=== PATIENT | female | born 1990 | race Caucasian/White ===

== ENCOUNTER → 2017-06-18 07:45 | Outpatient (CLI) | payer OTHER, SELFPAY ==
[2017-06-18 16:19] LABS: Absolute Neutrophil Count 6.6 X10^3/uL (2.0-7.7); Basophil# 0.03 X10^3/uL; Basophil% 0.2 % (0-1); Eosinophil# 0.18 X10^3/uL; Eosinophils% 1.2 % (0-5); Hematocrit 40.8 % (37-47); Hemoglobin 12.7 g/dl (12.0-15.0); Lymphocyte % 46.7 % (19-41); Mean Corp Hgb Conc 31.1 g/gl (32-36); Mean Corpuscular Hgb 28.8 pg (27.0-32.0); Mean Corpuscular Volume 92.5 fL (81-99); Mean Platelet Vol. 9.7 fl (6.2-12.0); Monocyte# 0.97 X10^3/uL; Monocyte% 6.7 % (0-10); Neutrophil # 6.55 X10^3/uL (2.7-7.7); Platelet Count 509 K/mm3 (150-450); RBC Distribution Width CV 13.4 % (11.6-14.6); RBC Distribution Width SD 45.2 fl (35.1-43.9); Red Blood Count 4.41 M/mm3 (4.2-5.4); White Blood Count 14.6 K/mm3 (4.4-11.0)
[2017-06-18 16:28] LABS: Differential Indicated SCAN CRITERIA MET; POSITIVE COUNT NO; POSITIVE DIFFERENTIAL YES; POSITIVE MORPHOLOGY NO
[2017-06-18 17:35] LABS: Reactive Lymphocyte RARE
== END ==
PROVIDERS: Family Provider Nurse Practitioner; PCP Nurse Practitioner
DX: R10.84 Generalized abdominal pain (principal)
CPT/HCPCS: 36415; 85025

== ENCOUNTER 2017-10-18 12:09 | Inpatient (IN) | payer OTHER, SELFPAY ==
[2017-10-18 12:21] VITALS: BMI 23.3
[2017-10-18 12:26] VITALS: BMI 23.4
[2017-10-18 12:40] VITALS: BP 110/73; PULSE 59; RESP 18; TEMP 36.9; O2SAT 100
--- NOTE | 2017-10-18 13:18 | PCM.HP.STD ---
Problem List (1) Opiate withdrawal Status: Acute (2) Narcotic dependence Status: Chronic (3) Tobacco dependence Status: Chronic (4) Fibromyalgia Status: Chronic (5) Migraine headache Status: Chronic (6) Neuropathy Status: Chronic Comment: Left lower extremity with abnormal nerve conduction studies (7) Anxiety Status: Chronic History of Present Illness Date of Admission: 10/18/17 Chief Complaint: opiate withdrawal with diarrhea, abdominal cramps and sweats The patient is a 27 year old F with a PMH of HTN, fibromyalgia, chronic back pain, neuropathy in the LLE anterior thigh, tobacco dependence and narcotic dependence who presented to the [facility] office requesting inpatient admission for controlled opiate withdrawal. she is addicted to Percocet and takes 60-70 mg of oxycodone daily.....has in the past taken as much as 100 mg of percocet a day. she has been to rehab 1 time in the past and was following up with a counselor but was discharged from the practice after missing an appt because she was ill. She has been going to but has no sponsor and she is not a drinker. She plans on attending an OP program when she is discharged that is near her home. She lives with her BF and he is not an addict. Her parents are very supportive. She had been clean for about 8 months and then began using again to control anxiety. She lost her job because she called in sick frequently when she went into withdrawal because she could not get Percocet. She has been getting Percocet from her GM and aunt and has gotten Percocet from friends in the past. She has never used IV drugs. She smokes 6-7 cigarettes a day and occasional marijuana. She occasionally has a drink but does not drink to excess. She denies any hx of hepatitis. She denies scleral icterus, jaundice, dark urine or pale stool. She was admitted to the hospital and the [facility] protocol for opiate withdrawal was initiated. Past Medical History Past Medical History (Chronic Problems): Chronic Problems Narcotic dependence (Chronic) Tobacco dependence (Chronic) Fibromyalgia (Chronic) Migraine headache (Chronic) Neuropathy (Chronic) Left lower extremity with abnormal nerve conduction studies Anxiety (Chronic) Allergies tramadol Allergy (Verified 10/18/17 12:31) Anaphylaxis duloxetine [From Cymbalta] Adverse Reaction (Verified 10/18/17 12:31) Diarrhea Home Medications: Ambulatory Orders Medication Instructions Recorded Citalopram Hydrobromide 40 mg PO DAILY 10/18/17 [Citalopram HBr] Levonorgestrel-Ethin Estradiol 1 tablet PO DAILY 10/18/17 [Larissia-28 Tablet] Metoprolol Succinate 25 mg PO DAILY 10/18/17 Sumatriptan Succinate 25 mg PO PRN PRN 10/18/17 Topiramate [Topamax] 25 mg PO DAILY 10/18/17 busPIRone [Buspar] 5 mg PO DAILY 10/18/17 Surgical History: noncontributory Psychiatric History: Anxiety [employer]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 Denies: Fever Eyes: Denies: Vision Change HEENT: Denies: Head Aches, Sinus Congestion, Sinus Drainage Cardiovascular: Denies: Chest Pain, Palpitations Respiratory: Denies: Cough, Shortness of breath at rest, Sputum production Gastrointestinal: Reports: Diarrhea, - - Abdominal cramping Genitourinary: Denies: Dysuria Gynecological: Denies: Vaginal discharge Musculoskeletal: Reports: Leg Pain - Left anterior thigh and chronic no change recently Skin: Denies: Rash, Wounds Neurological: Denies: Numbness, Tingling, Focal weakness Psychiatric: Reports: Anxiety. Denies: Homicidal Ideations, Suicidal Ideations Endocrine: Denies: Change in Body Habitus Hematologic/ Lymphatic: Denies: Hx of blood clot VTE Information - Inpt Only VTE Present on Admission: No VTE Mechan Device Prophylaxis: None VTE Pharm Prophylaxis ordered?: No Reason prophylaxis not ordered:: Treatment Not Indicated - Patient is very low risk and is ambulatory Patient Problems: Active and Suspected Problems Opiate withdrawal (Acute) - Physical Exam Vital Signs Temp Pulse Resp BP Pulse Ox 98.4 F 59 L 18 110/73 100 10/18/17 12:40 10/18/17 12:40 10/18/17 12:40 10/18/17 12:40 10/18/17 12:40 Oxygen Delivery Method Room Air Weight: 136 lb 3.931 oz Body Mass Index (BMI) 23.3 Assessment/Plan All Active Problems Opiate withdrawal (Acute) Impression 1. acute opiate withdrawal 2. chronic narcotic dependence 3. Tobacco dependence 4. marijuana use 5. chronic back pain 6. neuropathy LLE 7. fibromyalgia 8. HTN [facility] protocol for opiate withdrawal initiated. No clonidine since she is already on a beta stephanie and the HR is in the 50's and 60's. suboxone taper check a CMP, CBC, urine drug screen She may take her own BCP
[2017-10-18 13:45] LABS: Absolute Lymphocyte Count 3.57 X10^3/ul (0.83-4.51); Absolute Neutrophil Count 6.9 X10^3/uL (2.0-7.7); Basophil# 0.03 X10^3/uL; Basophil% 0.3 % (0-1); Eosinophil# 0.03 X10^3/uL; Eosinophils% 0.3 % (0-5); Hematocrit 37.5 % (37-47); Hemoglobin 12.4 g/dl (12.0-15.0); Lymphocyte # 3.57 X10^3/ul (4.0); Mean Corp Hgb Conc 33.1 g/gl (32-36); Mean Corpuscular Hgb 29.5 pg (27.0-32.0); Mean Corpuscular Volume 89.3 fL (81-99); Mean Platelet Vol. 10.2 fl (6.2-12.0); Monocyte# 0.61 X10^3/uL; Monocyte% 5.5 % (0-10); Neutrophil % 61.7 % (47-70); POSITIVE COUNT NO; POSITIVE DIFFERENTIAL NO; POSITIVE MORPHOLOGY NO; Platelet Count 401 K/mm3 (150-450); RBC Distribution Width CV 12.4 % (11.6-14.6); RBC Distribution Width SD 40.2 fl (35.1-43.9); White Blood Count 11.2 K/mm3 (4.4-11.0)
[2017-10-18 13:50] LABS: International Normalized Ratio 1.1; Prothrombin Time (Protime)PT. 13.7 SECONDS (11.7-14.9)
[2017-10-18 14:01] LABS: AST(SGOT) 9 U/L (15-37); Alanine Aminotransfer ALT/SGPT 20 U/L (13-56); Albumin, Serum 3.7 g/dL (3.2-5.0); Alkaline Phosphatase 72 U/L (45-117); Anion Gap 8 (5-15); BUN 11 mg/dL (7-18); BUN/Creat Ratio 12.3 RATIO (10-20); Calcium,Total 8.8 mg/dL (8.5-10.1); Chloride 106 mmol/L (98-107); EST Glomerular Filtration Rate 81 mL/min (>60); Est Glom Filt Rate - Afr Amer 98 mL/min (>60); Estimated Creatinine Clearance 82.51 ml/min; Globulin 3.8 g/dL (2.2-4.2); Glucose 89 mg/dL (74-106); Potassium 4.3 mmol/L (3.5-5.1); Protein, Total 7.5 g/dL (6.4-8.2); Sodium Level 137 mmol/L (136-145)
[2017-10-18] MEDS: Methocarbamol 750 MG Tablet PO ×2 (14:14→22:21)
[2017-10-18] MEDS: hydrOXYzine PAM 25 MG Capsule 50 MG PO ×2 (14:14→20:11)
[2017-10-18] MEDS: Loperamide 2 MG Capsule PO (14:14)
[2017-10-18] MEDS: Buprenorphine HCl 2 MG TAB.SUBL SL ×2 (14:14→22:24)
[2017-10-18 14:16] VITALS: BP 112/72; PULSE 60; RESP 18; TEMP 36.8
[2017-10-18 14:28] LABS: Amphetamine Urine VISTA NEGATIVE (<1000 ng/mL); Barbiturate Urine VISTA NEGATIVE (< 200 ng/mL); Benzodiazepine Urine VISTA NEGATIVE (< 200 ng/mL); Cocaine Urine VISTA NEGATIVE (< 300 ng/mL); Ecstacy Urine VISTA NEGATIVE (< 500 ng/mL); Methadone Urine VISTA NEGATIVE (< 300 ng/mL); PCP Urine VISTA NEGATIVE (< 25 ng/mL); THC Urine VISTA NEGATIVE (< 50 ng/mL); Vista UDS pH Range 6
--- NOTE | 2017-10-18 15:41 | CASEMGMT ---
Social Work Pt admitted under the [facility]. FAY spoke with pt physician who states pt has been attending AA meetings but would be better served with Narcotics anonymous. SW met with pt in room and provided a list of NA meetings near pt home. Pt is appreciative of list and declines further needs at this time. SW will remain available should further needs arise. EUFEMIA Barboza
[2017-10-18] MEDS: Pramipexole Di-HCl 0.25 MG Tablet PO (15:51)
[2017-10-18] MEDS: QUEtiapine 25 MG Tablet PO (15:51)
[2017-10-18 18:00] VITALS: BP 89/50; PULSE 69; RESP 16; TEMP 36.8
[2017-10-18 18:08] VITALS: BP 89/50; PULSE 69; RESP 18; TEMP 36.8; O2SAT 98
[2017-10-18 19:58] VITALS: BP 97/52; BP 97/59; PULSE 52; RESP 14; TEMP 36.6; O2SAT 99
[2017-10-18] MEDS: Ibuprofen 600 MG Tablet PO (20:11)
[2017-10-18] MEDS: Topiramate 25 MG Tablet PO (22:23)
[2017-10-19 03:01] VITALS: BP 101/57; PULSE 69; RESP 14; TEMP 36.7; O2SAT 97
[2017-10-19] MEDS: QUEtiapine 25 MG Tablet PO ×4 (03:03→22:36)
[2017-10-19] MEDS: Acetaminophen 500 MG Tablet PO ×4 (03:03→20:40)
[2017-10-19] MEDS: Buprenorphine HCl 2 MG TAB.SUBL SL ×3 (06:17→22:35)
[2017-10-19 08:52] VITALS: BP 100/67; PULSE 76; RESP 16; TEMP 36.6; O2SAT 98
[2017-10-19 09:00] VITALS: PULSE 76
[2017-10-19] MEDS: Multivitamins,Ther W-Minerals Tablet 1 TABLET PO (09:00)
[2017-10-19] MEDS: Metoprolol(XL)Succ 25 MG Tablet PO (09:00)
[2017-10-19] MEDS: Citalopram 40 MG TABLET PO (09:00)
[2017-10-19] MEDS: busPIRone 5 MG Tablet PO (09:00)
[2017-10-19] MEDS: Methocarbamol 750 MG Tablet PO ×3 (09:01→22:55)
[2017-10-19] MEDS: hydrOXYzine PAM 25 MG Capsule 50 MG PO ×2 (12:36→20:40)
[2017-10-19] MEDS: Ibuprofen 600 MG Tablet PO (12:36)
[2017-10-19 13:41] VITALS: BP 104/60; PULSE 69; RESP 16; TEMP 36.3; O2SAT 99
--- NOTE | 2017-10-19 18:11 | PCM.PROGNOTE ---
Patient Problems: Active and Suspected Problems Opiate withdrawal (Acute) Subjective: All events of the past 24 hours been reviewed. Afebrile, vital signs stable. She is 97-99% saturated on room air. CMP and CBC were unremarkable. The tox screen was negative. She had a rough night last night with nausea and sweats and anxiety but is feeling better today. She is worried about having a period now when it is not time but, I reassured her this happens when the body is stressed and withdrawal is a stressor. Objective: PHYSICAL EXAM: GENERAL: alert, oriented X 3, Cooperative, NAD ORAL: moist mucosa, no mucosal lesions NECK: No JVD, supple, trachea midline LUNGS: CTA, symmetric chest expansion HEART: RRR, Normal S1 and S2, no rub, no gallop ABDOMEN: soft, NT, ND, BS present, no guarding with palpation EXTREMITIES: no edema, no cyanosis, no calf tenderness SKIN: No rashes, no breakdown NEUROLOGIC: no focal neurologic deficits PSYCH: appropriate, normal affect, pleasant - Physical Exam Vital Signs Temp Pulse Resp BP Pulse Ox 97.4 F L 69 16 104/60 99 10/19/17 13:41 10/19/17 13:41 10/19/17 13:41 10/19/17 13:41 10/19/17 13:41 Oxygen Delivery Method Room Air Weight: 136 lb 3.931 oz Body Mass Index (BMI) 23.3 Intake and Output for Last 24 Hours 10/17/17 10/18/17 10/19/17 23:59 23:59 23:59 Intake Total 1999 500 / 500 Balance 1999 500 / 500 Medical Necessity - Tobacco Use Smoking Status: Current every day smoker Tobacco Use: Cigarettes Assessment/Plan All Active Problems Opiate withdrawal (Acute) Impression 1. acute opiate withdrawal 2. chronic narcotic dependence 3. Tobacco dependence 4. marijuana use 5. chronic back pain 6. neuropathy LLE 7. fibromyalgia 8. HTN Continue with the [facility] protocol for opiate withdrawal Code Visit Inpatient E&M: 51679 Subs Hosp L2
[2017-10-19 19:58] VITALS: BP 114/74; PULSE 71; RESP 18; TEMP 36.4
[2017-10-19 20:03] VITALS: O2SAT 99
[2017-10-19] MEDS: Pramipexole Di-HCl 0.25 MG Tablet PO (20:39)
[2017-10-19] MEDS: Topiramate 25 MG Tablet PO (22:34)
[2017-10-20] VITALS (8 sets, daily range): BP systolic 113–145; BP diastolic 70–88; PULSE 74–92; RESP 16–18; TEMP 36.5–37.3; O2SAT 98–99
[2017-10-20] MEDS: hydrOXYzine PAM 25 MG Capsule 50 MG PO ×2 (06:19→14:42)
[2017-10-20] MEDS: Buprenorphine HCl 2 MG TAB.SUBL SL ×2 (06:19→17:19)
[2017-10-20] MEDS: Ibuprofen 600 MG Tablet PO ×2 (06:19→14:42)
[2017-10-20] MEDS: Ondansetron ODT 4 MG Tablet PO ×2 (06:21→23:17)
[2017-10-20] MEDS: Multivitamins,Ther W-Minerals Tablet 1 TABLET PO (09:00)
[2017-10-20] MEDS: Citalopram 40 MG TABLET PO (09:01)
[2017-10-20] MEDS: Metoprolol(XL)Succ 25 MG Tablet PO (09:01)
[2017-10-20] MEDS: busPIRone 5 MG Tablet PO (09:01)
[2017-10-20] MEDS: QUEtiapine 25 MG Tablet PO ×2 (09:05→17:24)
[2017-10-20] MEDS: Methocarbamol 750 MG Tablet PO ×2 (09:05→23:06)
[2017-10-20] MEDS: Pramipexole Di-HCl 0.25 MG Tablet PO (09:05)
[2017-10-20] MEDS: Acetaminophen 500 MG Tablet PO (17:24)
--- NOTE | 2017-10-20 17:31 | PCM.PROGNOTE ---
Patient Problems: Active and Suspected Problems Opiate withdrawal (Acute) Subjective: Afebrile Blood pressures have been mildly elevated. She tells me she had a bad night because she had pain in her left thigh. Denies nausea/vomiting, diarrhea, tremors. She had several questions including my opinion on suboxone, Vivitrol and Methadone. Worried about pain inner thigh and how to relieve it without narcotics. Has never tried a TENS unit. Lyrica has helped her in the past but, her insurance does not pay for Lyrica.....I encouraged her to talk to her PCP and see if he/she could write a letter to the insurance company and request they cover the Lyrica since Gabapentin does not work for her. She had Cymbalta in the past and it made her very nauseated. she has never tried Effexor.......willing to try Effexor to see if it helps with pain. Objective: PHYSICAL EXAM: GENERAL: alert, oriented X 3, Cooperative, NAD ORAL: moist mucosa, no mucosal lesions NECK: No JVD, supple, trachea midline LUNGS: CTA, symmetric chest expansion HEART: RRR, Normal S1 and S2, no rub, no gallop ABDOMEN: soft, NT, ND, BS present, no guarding with palpation EXTREMITIES: no edema, no cyanosis, no calf tenderness SKIN: No rashes, no breakdown NEUROLOGIC: no focal neurologic deficits PSYCH: appropriate, normal affect, pleasant - Physical Exam Vital Signs Temp Pulse Resp BP Pulse Ox 99.1 F 74 18 115/75 98 10/20/17 14:33 10/20/17 14:33 10/20/17 14:33 10/20/17 14:33 10/20/17 14:33 Oxygen Delivery Method Room Air Weight: 136 lb 3.931 oz Body Mass Index (BMI) 23.3 Intake and Output for Last 24 Hours 10/18/17 10/19/17 10/20/17 23:59 23:59 23:59 Intake Total 1999 500 / 500 1340 / 1340 Balance 1999 500 / 500 1340 / 1340 Medical Necessity - Tobacco Use Smoking Status: Current every day smoker Tobacco Use: Cigarettes Assessment/Plan All Active Problems Opiate withdrawal (Acute) Impression 1. acute opiate withdrawal 2. chronic narcotic dependence 3. Tobacco dependence 4. marijuana use 5. chronic back pain 6. neuropathy LLE 7. fibromyalgia 8. HTN Continue with the [facility] protocol for opiate withdrawal Start Anaprox DS BID Tylenol 650 TID scheduled Start Effexor XR 75 mg daily today While she is initially attending rehab/counselling again it may be beneficial to use Vivitrol for a few months until she gets her anxiety and depression under control. I told her I usually advise any pt with any addiction to not consider a relationship until they have been clean for at least a year because, relationships are stressful....she agreed vehemently. Makes me wonder if she is having a problem with her BF that lead to the increased anxiety? Code Visit Inpatient E&M: 98209 Subs Hosp L2
[2017-10-20] MEDS: Venlafaxine XR 75 MG Capsule PO (18:54)
[2017-10-20] MEDS: Acetaminophen 325 MG Tablet 650 MG PO (23:07)
[2017-10-20] MEDS: Topiramate 25 MG Tablet PO (23:07)
[2017-10-21 06:00] VITALS: BP 122/77; PULSE 79; RESP 16; TEMP 37.1
[2017-10-21] MEDS: Acetaminophen 325 MG Tablet 650 MG PO (06:07)
[2017-10-21] MEDS: Methocarbamol 750 MG Tablet PO (06:08)
[2017-10-21] MEDS: QUEtiapine 25 MG Tablet PO (06:12)
[2017-10-21] MEDS: Buprenorphine HCl 2 MG TAB.SUBL SL (06:13)
[2017-10-21 08:04] VITALS: BP 132/73; PULSE 82; RESP 16; TEMP 36.3; O2SAT 98
[2017-10-21] MEDS: Venlafaxine XR 75 MG Capsule PO (08:05)
[2017-10-21 08:06] VITALS: PULSE 82
[2017-10-21] MEDS: busPIRone 5 MG Tablet PO (08:06)
[2017-10-21] MEDS: Citalopram 40 MG TABLET PO (08:06)
[2017-10-21] MEDS: Multivitamins,Ther W-Minerals Tablet 1 TABLET PO (08:06)
[2017-10-21] MEDS: Metoprolol(XL)Succ 25 MG Tablet PO (08:06)
--- NOTE | 2017-10-21 12:51 | PCM.DC ---
- Discharge Diagnoses Current Active Problems: Current Active and Chronic Problems Opiate withdrawal (Acute) Narcotic dependence (Chronic) Tobacco dependence (Chronic) Fibromyalgia (Chronic) Migraine headache (Chronic) Neuropathy (Chronic) Left lower extremity with abnormal nerve conduction studies Anxiety (Chronic) You will use the following diet at home:: No restrictions Your food should be the consistency of: Regular Your liquids should be the consistency of: Regular/Thin Discharge Activity: Return to Normal Activity May resume sexual activity in: No Restrictions Weight Bearing Status: Full weight bearing Call your doctor if you observe: Fever of 101 or Higher Additional Instructions: It is very hard to give up a narcotic, ethan when you have chronic pain. the goal of pain management is not to totally relieve pain but to make it tolerable and keep you functional. Human beings are not perfect. Many people have anxiety and depression because LIFE IS STRESSFUL. When we find something to relieve anxiety and make us feel better we like to stick with it........unfortunately that something can be bad for you and cause you a lot of problems in your life. The best way to manage chronic pain is to use a FEW DIFFERENT MODALITIES THAT WORK DIFFERENTLY. I have started you on an anti-inflammatory called Naprosyn. Naprosyn is also a pain reliever. In order to get the maximum anti-infalmmatory benefit you have to take it every day for 4 - 6 weeks. Tylenol is also a good pain reliever and I recommend you take it 3 times a day. I am changing the antidepressant form Citalopram to Effexor......they work differently and Effexor also is good for people with chronic pain because the chemical structure is different than Citalopram. You will need to be off the Citalopram before you can start the Effexor and we have to wean the Citalopram off. I gave you a new prescription for 20 mg tablets of Citalopram. Take one 20 mg tab daily for 1 week and then take 1/2 tab daily for 1 week and then stop. Start the Effexor XR 75 mg daily and after 2 weeks if you have no adverse side effects ask your PCP to increased to 150 mg daily which is a more therapeutic dose. I think you should also look into a TENS unit.......you can purchase one online. I think you should talk to your PCP about writing an appeal to your dad's insurance company asking them to cover the Lyrica since heidi tried the Gabapentin for 6 months and it did not help.......often they will approve the medication. GOOD LUCK.......you were successful for several months and you can do this........I think it is going to be crical to your success to get the anxiety under control and counselling and medication are necessary. Pending Tests on Discharge: none Allergies/Adverse Reactions: Allergies tramadol Allergy (Verified 10/18/17 12:31) Anaphylaxis duloxetine [From Cymbalta] Adverse Reaction (Verified 10/18/17 12:31) Diarrhea Medications to take at Discharge Levonorgestrel-Ethin Estradiol [Larissia-28 Tablet] 1 tablet PO QHS 10/18/17 Metoprolol Succinate 25 mg PO DAILY 10/18/17 Sumatriptan Succinate 25 mg PO PRN PRN 10/18/17 Topiramate [Topamax] 25 mg PO QHS 10/18/17 busPIRone [Buspar] 5 mg PO DAILY 10/18/17 Acetaminophen [Tylenol Tablet] 650 mg PO TID tablet 10/21/17 Citalopram [Celexa] 20 mg PO DAILY #30 tab 10/21/17 Naproxen Sodium [Anaprox Ds] 550 mg PO BIDCM #60 tab 10/21/17 Venlafaxine XR [Effexor Xr] 75 mg PO DAILY #30 cap 10/21/17 The following prescriptions were given: Citalopram [Celexa] 20 mg PO DAILY #30 tab Venlafaxine XR [Effexor Xr] 75 mg PO DAILY #30 cap Naproxen Sodium [Anaprox Ds] 550 mg PO BIDCM #60 tab Primary Care Physician: Care Physician,No Primary [Primary Care Provider] - Proposed Discharge Date: 10/21/17
--- NOTE | 2017-10-21 13:08 | PCM.DC.SUM ---
Discharge Date and Diagnosis - Problem List Patient Problems: Active and Suspected Problems Opiate withdrawal (Acute) Date of Admission: 10/18/17 Date of Discharge: 10/21/17 - Primary Discharge Diagnosis Active and Suspected Problems Opiate withdrawal (Acute) - Secondary Discharge Diagnosis Chronic Problems Narcotic dependence (Chronic) Tobacco dependence (Chronic) Fibromyalgia (Chronic) Migraine headache (Chronic) Neuropathy (Chronic) Left lower extremity with abnormal nerve conduction studies Anxiety (Chronic) Hospital Course and Treatment Imaging Results: Laboratory Tests 10/18/17 10/18/17 10/18/17 13:35 13:35 13:35 WBC 11.2 H RBC 4.20 Hgb 12.4 Hct 37.5 MCV 89.3 MCH 29.5 MCHC 33.1 RDW 12.4 RDW Differential 40.2 Plt Count 401 MPV 10.2 Immature Gran % (Auto) 0.200 Neut % (Auto) 61.7 Lymph % (Auto) 32.0 [place] % (Auto) 5.5 Eos % (Auto) 0.3 Baso % (Auto) 0.3 Absolute Neuts (auto) 6.9 Absolute Lymphs (auto) 3.57 Total Counted Not Reportable PT 13.7 INR 1.1 Sodium 137 Potassium 4.3 Chloride 106 Carbon Dioxide 23.0 Anion Gap 8 BUN 11 Creatinine 0.90 Estim Creat Clear Calc 82.51 Est GFR (MDRD) Af Amer 98 Est GFR (MDRD) Non-Af 81 BUN/Creatinine Ratio 12.3 Glucose 89 Calcium 8.8 Total Bilirubin 0.20 AST 9 L ALT 20 Alkaline Phosphatase 72 Total Protein 7.5 Albumin 3.7 Globulin 3.8 Albumin/Globulin Ratio 1.0 Urine Opiates Screen Urine Methadone Screen Ur Barbiturates Screen Ur Phencyclidine Scrn Ur Amphetamines Screen U Methamphetamin-MDMA U Benzodiazepines Scrn Urine Cocaine Screen U Cannabinoids Screen Ur Drug Screen Comment 10/18/17 14:06 WBC RBC Hgb Hct MCV MCH MCHC RDW RDW Differential Plt Count MPV Immature Gran % (Auto) Neut % (Auto) Lymph % (Auto) [place] % (Auto) Eos % (Auto) Baso % (Auto) Absolute Neuts (auto) Absolute Lymphs (auto) Total Counted PT INR Sodium Potassium Chloride Carbon Dioxide Anion Gap BUN Creatinine Estim Creat Clear Calc Est GFR (MDRD) Af Amer Est GFR (MDRD) Non-Af BUN/Creatinine Ratio Glucose Calcium Total Bilirubin AST ALT Alkaline Phosphatase Total Protein Albumin Globulin Albumin/Globulin Ratio Urine Opiates Screen NEGATIVE Urine Methadone Screen NEGATIVE Ur Barbiturates Screen NEGATIVE Ur Phencyclidine Scrn NEGATIVE Ur Amphetamines Screen NEGATIVE U Methamphetamin-MDMA NEGATIVE U Benzodiazepines Scrn NEGATIVE Urine Cocaine Screen NEGATIVE U Cannabinoids Screen NEGATIVE Ur Drug Screen Comment none Operations: None Procedures: None Summary of Care Provided: The patient is a 27 year old F with a PMH of HTN, fibromyalgia, chronic back pain, neuropathy in the LLE anterior thigh, tobacco dependence and narcotic dependence who presented to the [facility] office requesting inpatient admission for controlled opiate withdrawal. She is addicted to Percocet and takes 60-70 mg of oxycodone daily.....has in the past taken as much as 100 mg of percocet a day. She has been to rehab 1 time in the past and was following up with a counselor but was discharged from the practice after missing an appt because she was ill. She has been going to but has no sponsor and she is not a drinker. She plans on attending an OP program when she is discharged that is near her home. She lives with her BF and he is very supportive and not an addict. Her parents are very supportive as well. She had been clean for about 8 months and then began using again to control anxiety. She lost her job because she called in sick frequently when she went into withdrawal because she could not get Percocet. She has been getting Percocet from her GM and aunt and has gotten Percocet from friends in the past. She has never used IV drugs. She smokes 6-7 cigarettes a day and occasional marijuana. She occasionally has a drink but does not drink to excess. She denies any hx of hepatitis. She denies scleral icterus, jaundice, dark urine or pale stool. She was admitted to the hospital and the [facility] protocol for opiate withdrawal was initiated. She was placed on a Suboxone taper. CMP and CBC at admission were unremarkable. The drug screen was negative. LFTs are normal. She complained of pain in the left thigh and was started on Naprosyn 50 mg BID and Tylenol 650 mg TID. She has tried Gabapentin in the past for a period of 6 months and it did not change the pain. she had diarrhea with the Gabapentin. She has also been on Lyrica in the past and tolerated this well with good results but, her insurance does not cover this medication. She has never tried a TENS unit. She did well with withdrawal and on 10/21 her VS were stable and she had no N/V/abd cramping/diarrhea or sweats. She was discharged home with a prescription for Naprosyn. She had 2 doses of Effexor in the hospital with no advers reactions. She was given a prescription for 20 mg tablets of Citalopram and instructed to take 20 mg daily for 1 week and then to decrease to 10 mg daily for a week and then discontinue. She will then change to Effexor XR 75mg daily which will treat anxiety/depression and also chronic pain. If she tolerates this for 2 weeks then I would increase the dose to 150 mg daily which is a more therapeutic dose. I instructed her to ask her PCP to write a letter of appeal to her insurance company and asking if they would cover Lyrica since a 6 month trial of Gabapentin was unsuccessful and Lyrica has helped her. I also asked her to look into purchasing a TENS unit to try. She has an appt for 10/23 at a OP rehab facility close to her home and she will get counselling there. Discharge Activity: Return to Normal Activity May resume sexual activity in: No Restrictions Weight Bearing Status: Full weight bearing Call your doctor if you observe: Fever of 101 or Higher Home Medications: Medications to take at Discharge Levonorgestrel-Ethin Estradiol [Larissia-28 Tablet] 1 tablet PO QHS 10/18/17 Metoprolol Succinate 25 mg PO DAILY 10/18/17 Sumatriptan Succinate 25 mg PO PRN PRN 10/18/17 Topiramate [Topamax] 25 mg PO QHS 10/18/17 busPIRone [Buspar] 5 mg PO DAILY 10/18/17 Acetaminophen [Tylenol Tablet] 650 mg PO TID tablet 10/21/17 Citalopram [Celexa] 20 mg PO DAILY #30 tab 10/21/17 Naproxen Sodium [Anaprox Ds] 550 mg PO BIDCM #60 tab 10/21/17 Venlafaxine XR [Effexor Xr] 75 mg PO DAILY #30 cap 10/21/17 Following Prescrptions Were Given to Patient: Citalopram [Celexa] 20 mg PO DAILY #30 tab Venlafaxine XR [Effexor Xr] 75 mg PO DAILY #30 cap Naproxen Sodium [Anaprox Ds] 550 mg PO BIDCM #60 tab Primary Care Physician: Care Physician,No Primary [Primary Care Provider] - Disposition: Home Minutes spent on discharge:: 30 Patient Condition:: Good Medical Necessity - Tobacco Use Smoking Status: Current every day smoker Tobacco Use: Cigarettes Meaningful Use Info Meaningful Use Diagnoses (Choose all that apply): None applicable Code Visit Inpatient E&M: 37427 Disch Hosp
== END 2017-10-21 13:14 | disposition home or self-care (01) | DRG 897 ==
LOC: MS2 10-19 05:43 → MS3 10-19 17:11
PROVIDERS: Admitting Provider Internal Medicine; Visit Provider Internal Medicine
DX: F11.23 Opioid dependence with withdrawal (principal); M79.7 Fibromyalgia; I10 Essential (primary) hypertension; G89.29 Other chronic pain; M54.9 Dorsalgia, unspecified; F12.90 Cannabis use, unspecified, uncomplicated; G62.9 Polyneuropathy, unspecified; F17.210 Nicotine dependence, cigarettes, uncomplicated
CPT/HCPCS: 80053; 80307; 85025; 85610; 99406

== ENCOUNTER 2020-07-18 12:41 | Inpatient (IN) | payer MEDICAID, SELFPAY ==
[2020-07-18] VITALS (7 sets, daily range): BP systolic 107–148; BP diastolic 68–101; PULSE 63–105; RESP 16–18; TEMP 36.6–36.8; O2SAT 97–100; BMI 25.7; BMI 25.4; BMI 25.5
--- NOTE | 2020-07-18 13:05 | ED.VIS.GEN ---
History of Present Illness Chief Complaint: Substance Abuse Informant: Patient Narrative: 30-year-old female with a history of oxycodone abuse presents seeking detox. She currently uses between 60 and 100 mg of oxycodone a day. She states that every time she runs out she begins to have withdrawal symptoms. She states that she was clean during her recent and delivered 8 months ago. She states she has been talking with a counselor but is continue to use. She was playing for the 3 months following. After that she had a UTI was placed on an antibiotic which led to her developing C. difficile and she was hospitalized. She states that while in the hospital she got pain medication and again as an outpatient and is started her addiction again. She last saw detox about 3 years ago at this facility. Her parents will be watching her child. She last used 1 hour ago when she took 10 mg of oxycodone. She states that she has sometimes formed stools and sometimes diarrhea stools. She has a history of irritable bowel. She has not had her stool retested to see if C. difficile has returned and she is worried that she may still be carrying C. difficile. - Past Medical History (1) Opiate withdrawal Status: Acute (2) Anxiety Status: Chronic (3) Fibromyalgia Status: Chronic (4) Migraine headache Status: Chronic (5) Neuropathy Status: Chronic Comment: Left lower extremity with abnormal nerve conduction studies Past Medical History - Allergies and Home Meds Allergies/Adverse Reactions: Allergies tramadol Allergy (Verified 07/18/20 12:41) Anaphylaxis duloxetine [From Cymbalta] Adverse Reaction (Verified 07/18/20 12:41) Diarrhea Primary Care Physician: Care Physician,No Primary [NON-STAFF] - Surgical History: noncontributory Lives: With Family Smoking Status: Never smoker Alcohol: None Drugs: - - Oxycodone - Family History Maternal Family History: Reports: No pertinent history Paternal Family History: Reports: No pertinent history Physical Exam Vital Signs/Narrative: Vital Signs Temp Pulse Resp BP Pulse Ox 07/18/20 12:42 97.8 F 105 H 16 145/101 H 97 Inital Vital Signs reviewed: Yes General: Well nourished, Well developed, No Acute Distress Head: Normocephalic, Atraumatic Eyes: Perrl, EOMI ENT: Moist mucous membranes, No rhinorrhea Neck: Supple, Nontender Cardiovascular: Regular rate, Regular rhythm, No murmurs Respiratory: No distress, CTA bilaterally, Chest nontender Abdomen: Soft, Nontender, Nondistended, Normal bowel sounds Back: Nontender, Normal Inspection Extremities: Nontender, No edema Skin: Normal color, No rash Neurological: Alert, Oriented x3, Cranial nerves II-XII grossly intact, Normal Strength, Normal Sensation Psychological: Normal affect, Normal Mood Diagnostic/Tx/Re-eval Laboratory Last Values WBC 13.8 K/mm3 (4.4-11.0) H 07/18/20 13:10 RBC 5.06 M/mm3 (4.2-5.4) 07/18/20 13:10 Hgb 13.8 g/dL (12.0-15.0) 07/18/20 13:10 Hct 42.5 % (37-47) 07/18/20 13:10 MCV 84.0 fL (81-99) 07/18/20 13:10 MCH 27.3 pg (27.0-32.0) 07/18/20 13:10 MCHC 32.5 g/dL (32-36) 07/18/20 13:10 RDW Std Deviation 41.9 fl (35.1-43.9) 07/18/20 13:10 RDW Coeff of Jerome 13.7 % (11.6-14.6) 07/18/20 13:10 Plt Count 526 K/mm3 (150-450) H 07/18/20 13:10 MPV 9.9 fl (6.2-12.0) 07/18/20 13:10 Immature Gran % (Auto) 0.400 % (0.0-0.9) 07/18/20 13:10 Neut % (Auto) 76.1 % (47-70) H 07/18/20 13:10 Lymph % (Auto) 19.5 % (19-41) 07/18/20 13:10 Esmeralda % (Auto) 3.6 % (0-10) 07/18/20 13:10 Eos % (Auto) 0.1 % (0-5) 07/18/20 13:10 Baso % (Auto) 0.3 % (0-1) 07/18/20 13:10 Absolute Neuts (auto) 10.5 X10^3/uL (2.0-7.7) H 07/18/20 13:10 Absolute Lymphs (auto) 2.68 X10^3/uL (0.83-4.51) 07/18/20 13:10 Nucleated RBC % 0 % (0-5) 07/18/20 13:10 Sodium 139 mmol/L (136-145) 07/18/20 13:10 Potassium 3.9 mmol/L (3.5-5.1) 07/18/20 13:10 Chloride 104 mmol/L (98-107) 07/18/20 13:10 Carbon Dioxide 28.0 mmol/L (21.0-32.0) 07/18/20 13:10 Anion Gap 7 (5-15) 07/18/20 13:10 BUN 10 mg/dL (7-18) 07/18/20 13:10 Creatinine 0.79 mg/dL (0.55-1.02) 07/18/20 13:10 Estim Creat Clear Calc 91.55 ml/min 07/18/20 13:10 Est GFR (MDRD) Af Amer 112 mL/min (>60) 07/18/20 13:10 Est GFR (MDRD) Non-Af 93 mL/min (>60) 07/18/20 13:10 BUN/Creatinine Ratio 12.7 RATIO (10-20) 07/18/20 13:10 Glucose 125 mg/dL (74-106) H 07/18/20 13:10 Calcium 9.5 mg/dL (8.5-10.1) 07/18/20 13:10 Total Bilirubin 0.30 mg/dL (0.20-1.00) 07/18/20 13:10 AST 17 U/L (15-37) 07/18/20 13:10 ALT 42 U/L (13-56) 07/18/20 13:10 Alkaline Phosphatase 100 U/L (45-117) 07/18/20 13:10 Total Protein 8.2 g/dL (6.4-8.2) 07/18/20 13:10 Albumin 4.1 g/dL (3.2-5.0) 07/18/20 13:10 Globulin 4.1 g/dL (2.2-4.2) 07/18/20 13:10 Albumin/Globulin Ratio 1.0 RATIO (0.9-2.4) 07/18/20 13:10 Serum , Qual NEGATIVE Negative 07/18/20 13:10 Urine Opiates Screen POSITIVE (< 300 ng/mL) H 07/18/20 13:10 Urine Methadone Screen NEGATIVE (< 300 ng/mL) 07/18/20 13:10 Ur Barbiturates Screen NEGATIVE (< 200 ng/mL) 07/18/20 13:10 Ur Phencyclidine Scrn NEGATIVE (< 25 ng/mL) 07/18/20 13:10 Ur Amphetamines Screen NEGATIVE (<1000 ng/mL) 07/18/20 13:10 U Methamphetamin-MDMA NEGATIVE (< 500 ng/mL) 07/18/20 13:10 U Benzodiazepines Scrn NEGATIVE (< 200 ng/mL) 07/18/20 13:10 Urine Cocaine Screen NEGATIVE (< 300 ng/mL) 07/18/20 13:10 U Cannabinoids Screen NEGATIVE (< 50 ng/mL) 07/18/20 13:10 Ur Drug Screen Comment 07/18/20 13:10 Ethyl Alcohol < 3.0 mg/dL 07/18/20 13:10 - Medical Decision Making We will obtain medical clearance labs and I have requested the patient provide us with a stool specimen. I will talk with the hospitalist about admission. ED Disposition - Plan for ED Patient: Disposition: Acute Care Hospital [facility] Diagnosis: Opiate withdrawal Referrals: Care Physician,No Primary [NON-STAFF] -
[2020-07-18 13:38] LABS: Absolute Lymphocyte Count 2.68 X10^3/uL (0.83-4.51); Absolute Neutrophil Count 10.5 X10^3/uL (2.0-7.7); Amphetamine Urine VISTA NEGATIVE (<1000 ng/mL); Barbiturate Urine VISTA NEGATIVE (< 200 ng/mL); Basophil# 0.04 X10^3/uL; Basophil% 0.3 % (0-1); Benzodiazepine Urine VISTA NEGATIVE (< 200 ng/mL); Cocaine Urine VISTA NEGATIVE (< 300 ng/mL); Ecstacy Urine VISTA NEGATIVE (< 500 ng/mL); Eosinophil# 0.02 X10^3/uL; Eosinophils% 0.1 % (0-5); Hematocrit 42.5 % (37-47); Hemoglobin 13.8 g/dL (12.0-15.0); Lymphocyte # 2.68 X10^3/ul (4.0); Lymphocyte % 19.5 % (19-41); Mean Corp Hgb Conc 32.5 g/dL (32-36); Mean Corpuscular Hgb 27.3 pg (27.0-32.0); Mean Platelet Vol. 9.9 fl (6.2-12.0); Methadone Urine VISTA NEGATIVE (< 300 ng/mL); Monocyte# 0.49 X10^3/uL; Monocyte% 3.6 % (0-10); NRBC Flagged by Analyzer 0 % (0-5); Neutrophil # 10.47 X10^3/uL (2.7-7.7); Neutrophil % 76.1 % (47-70); PCP Urine VISTA NEGATIVE (< 25 ng/mL); Platelet Count 526 K/mm3 (150-450); RBC Distribution Width CV 13.7 % (11.6-14.6); RBC Distribution Width SD 41.9 fl (35.1-43.9); Red Blood Count 5.06 M/mm3 (4.2-5.4); THC Urine VISTA NEGATIVE (< 50 ng/mL); Vista UDS pH Range 5; White Blood Count 13.8 K/mm3 (4.4-11.0)
[2020-07-18 13:42] LABS: AST(SGOT) 17 U/L (15-37); Alanine Aminotransfer ALT/SGPT 42 U/L (13-56); Albumin, Serum 4.1 g/dL (3.2-5.0); Alkaline Phosphatase 100 U/L (45-117); Anion Gap 7 (5-15); BUN 10 mg/dL (7-18); BUN/Creat Ratio 12.7 RATIO (10-20); Calcium,Total 9.5 mg/dL (8.5-10.1); Chloride 104 mmol/L (98-107); Creatinine, Serum 0.79 mg/dL (0.55-1.02); EST Glomerular Filtration Rate 93 mL/min (>60); Est Glom Filt Rate - Afr Amer 112 mL/min (>60); Estimated Creatinine Clearance 91.55 ml/min; Globulin 4.1 g/dL (2.2-4.2); Glucose 125 mg/dL (74-106); Potassium 3.9 mmol/L (3.5-5.1); Protein, Total 8.2 g/dL (6.4-8.2); Sodium Level 139 mmol/L (136-145)
[2020-07-18 13:57] LABS: Internal QC Validated? YES +Cl - CLEAR BKGD; Pregnancy, Serum, hCG Quali. NEGATIVE Negative
[2020-07-18 14:03] LABS: Alcohol, Blood (Medical)-Serum < 3.0 mg/dL
--- NOTE | 2020-07-18 14:26 | PCM.HP.STD ---
<Jairo Coyle PA - Last Filed: 07/18/20 14:26> Problem List (1) Opiate withdrawal Status: Acute (2) Narcotic dependence Status: Chronic (3) Anxiety Status: Chronic (4) Tobacco dependence Status: Chronic (5) Fibromyalgia Status: Chronic (6) Migraine headache Status: Chronic (7) Neuropathy Status: Chronic Comment: Left lower extremity with abnormal nerve conduction studies History of Present Illness Date of Admission: 07/18/20 Chief Complaint: Opioid withdrawal/detox Ms. Pinto is a 30-year-old female who presents to the ED with a chief complaint of opiate withdrawal. Patient admits to a 10-year history of abusing prescription opioids, with her preferred method being to snort the opioids intranasally. Patient denies smoking or injecting any opioid drugs. Patient's most recent drug use was an hour ago when she reports taking 10 mg of oxycodone. Patient has been through opioid detox programs before, and has had prolonged periods of being sober. Patient denies using opioids up until about 8 months ago when her baby was born. Patient states that she did not abuse opioids throughout her entire . It is unclear when she resumed opioid use after her baby was born. Patient was last seen at this facility for detox 3 years ago. Patient endorses withdrawal symptoms every time she tries to stop using opioids. Past medical history is significant for hypertension, anxiety, tobacco dependence, narcotic dependence. Past Medical History Past Medical History (Chronic Problems): Chronic Problems Narcotic dependence (Chronic) Tobacco dependence (Chronic) Fibromyalgia (Chronic) Migraine headache (Chronic) Neuropathy (Chronic) Left lower extremity with abnormal nerve conduction studies Anxiety (Chronic) Allergies tramadol Allergy (Verified 07/18/20 12:41) Anaphylaxis duloxetine [From Cymbalta] Adverse Reaction (Verified 07/18/20 12:41) Diarrhea Home Medications: Ambulatory Orders Medication Instructions Recorded Levonorgestrel-Ethin Estradiol 1 tablet PO QHS 10/18/17 [Larissia-28 Tablet] Metoprolol Succinate 50 mg PO DAILY 10/18/17 Sumatriptan Succinate 25 mg PO PRN PRN 10/18/17 Acetaminophen [Tylenol Tablet] 650 mg PO TID tablet 10/21/17 Amlodipine [Norvasc] 5 mg PO DAILY 07/18/20 Dicyclomine HCl 20 mg PO Q6H PRN PRN 07/18/20 Surgical History: noncontributory Psychiatric History: Anxiety [employer] History: No pertinent [employer] history Lives: With Family Smoking Status: Never smoker Tobacco Use: Non-smoker Alcohol: None Drugs: - - Oxycodone - *Family History Maternal History Items: No pertinent history Paternal History Items: No pertinent history Review of Systems Constitutional: Reports: Chills, Fatigue. Denies: Weight Change HEENT: Reports: Head Aches. Denies: Sinus Congestion, Sinus Drainage Cardiovascular: Denies: Chest Pain, Palpitations Respiratory: Denies: Cough, Shortness of breath at rest, Sputum production Gastrointestinal: Denies: Abdominal Pain, Nausea, Vomiting Genitourinary: Denies: Dysuria Musculoskeletal: Denies: Joint Pain, Joint Tenderness Skin: Denies: Rash, Wounds Neurological: Denies: Numbness, Tingling, Focal weakness Psychiatric: Denies: Anxiety, Depression, Homicidal Ideations, Suicidal Ideations Hematologic/ Lymphatic: Denies: Easy Bruising, Easy Bleeding VTE Information - Inpt Only VTE Present on Admission: No VTE Mechan Device Prophylaxis: SCD's Patient Problems: Active and Suspected Problems Opiate withdrawal (Acute) Subjective: Patient is a pleasant 30-year-old female who is resting comfortably in bed, alert and oriented x3. - Physical Exam Vitals/I&O's: Vital Signs Temp Pulse Resp BP Pulse Ox 97.8 F 105 H 16 145/101 H 97 07/18/20 12:42 07/18/20 12:42 07/18/20 12:42 07/18/20 12:42 07/18/20 12:42 Oxygen Delivery Method Room Air Weight: 150 lb Body Mass Index (BMI) 25.7 General: Alert, Oriented x3, Cooperative HEENT: Atraumatic, PERRLA, EOMI, Normocephalic Neck: Supple, No JVD, Negative Carotid Bruits Lungs: Clear to auscultation, Normal air movement Cardiovascular: Regular rate, No murmurs Abdomen: Bowel Sounds Present, Soft, Non Tender Extremities: No edema, Capillary Refill Less than 3 Seconds Skin: No rashes, No breakdown Musculoskeletal: No Tenderness to Palpation of Joints or Extremities Neurological: Cranial nerves II-XII grossly intact Psych/Mental Status: Normal Affect, Appropriate Laboratory Results 07/18/20 13:10: WBC 13.8 H, RBC 5.06, Hgb 13.8, Hct 42.5, MCV 84.0, MCH 27.3, MCHC 32.5, RDW Std Deviation 41.9, RDW Coeff of Jerome 13.7, Plt Count 526 H, MPV 9.9, Immature Gran % (Auto) 0.400, Neut % (Auto) 76.1 H, Lymph % (Auto) 19.5, Chickasaw % (Auto) 3.6, Eos % (Auto) 0.1, Baso % (Auto) 0.3, Absolute Neuts (auto) 10.5 H, Absolute Lymphs (auto) 2.68, Nucleated RBC % 0 07/18/20 13:10: Sodium 139, Potassium 3.9, Chloride 104, Carbon Dioxide 28.0, Anion Gap 7, BUN 10, Creatinine 0.79, Estim Creat Clear Calc 91.55, Est GFR (MDRD) Af Amer 112, Est GFR (MDRD) Non-Af 93, BUN/Creatinine Ratio 12.7, Glucose 125 H, Calcium 9.5, Total Bilirubin 0.30, AST 17, ALT 42, Alkaline Phosphatase 100, Total Protein 8.2, Albumin 4.1, Globulin 4.1, Albumin/Globulin Ratio 1.0 07/18/20 13:10: Ethyl Alcohol < 3.0 07/18/20 13:10: Urine Opiates Screen POSITIVE H, Urine Methadone Screen NEGATIVE, Ur Barbiturates Screen NEGATIVE, Ur Phencyclidine Scrn NEGATIVE, Ur Amphetamines Screen NEGATIVE, U Methamphetamin-MDMA NEGATIVE, U Benzodiazepines Scrn NEGATIVE, Urine Cocaine Screen NEGATIVE, U Cannabinoids Screen NEGATIVE, Ur Drug Screen Comment 07/18/20 13:10: Serum , Qual NEGATIVE Assessment/Plan All Active Problems Opiate withdrawal (Acute) Patient is a 30-year-old female who reports to the ED with a chief complaint of opioid withdrawal. Patient endorses a 10-year history of opioid abuse, claiming that she only abuses prescription medications intranasally. Patient denies injecting or smoking opioids. Patient denies abusing any other illicit or prescription drugs, to include alcohol. Tox screen consistent with patient claims. Patient has attempted detox in the past, and has had periods of prolonged sobriety. Patient does endorse withdrawal symptoms every time she tries to stop using opioids. Patient's past medical history significant for anxiety, IBS, C. difficile infection and hypertension. Patient will be admitted for opiate withdrawal and medical stabilization. 1) Opioid withdrawal/Detox Assessment - 10+ year history of prescription opioid abuse - Patient endorses nausea, chills, weakness, fatigue - Urine tox screen positive for opiates only - CBC and CMP unremarkable Plan - Admitted for opiate withdrawal and medical stabilization - Subutex taper initiated - Utilize COWS score to assess withdrawal 2) Hypertension Assessment - BP 145/101 at admission - Blood pressure likely elevated secondary to withdrawal Plan - Continue home medication regiment of metoprolol succinate and amlodipine 3) Anxiety Assessment - Stable Plan - Monitor for symptoms 4) IBS Assessment - Stable Plan - Monitor for symptoms 5) S/P C. difficile infection Assessment - CBC unremarkable - No evidence of acute infection Plan - Continue to monitor for change in symptoms DVT prophylaxis - SCD's Patient seen by Jairo Coyle PA-C, under the supervision of Dr. Puckett. <Ladarius Puckett - Last Filed: 07/18/20 15:22> History of Present Illness The patient is a 30 year old F presents seeking treatment for opiate withdrawal. Patient ingests oxycodone. Patient currently experiencing some abdominal cramps and some restless legs. Last use was this morning. Patient requesting treatment for opiate withdrawal. As outpatient patient has a counselor but has not been in contact with any formal addiction program before arriving. [] Past Medical History Allergies tramadol Allergy (Verified 07/18/20 12:41) Anaphylaxis duloxetine [From Cymbalta] Adverse Reaction (Verified 07/18/20 12:41) Diarrhea Surgical History: noncontributory - *Family History Maternal History Items: No pertinent history Paternal History Items: No pertinent history Review of Systems Constitutional: Reports: Chills, Fatigue. Denies: Weight Change HEENT: Reports: Head Aches. Denies: Sinus Congestion, Sinus Drainage Cardiovascular: Denies: Chest Pain, Palpitations Respiratory: Denies: Cough, Shortness of breath at rest, Sputum production Gastrointestinal: Reports: Diarrhea - Intermittent but consistent with her history of IBS.. Denies: Abdominal Pain, Nausea, Vomiting Genitourinary: Denies: Dysuria Musculoskeletal: Denies: Joint Pain, Joint Tenderness Skin: Denies: Rash, Wounds Neurological: Denies: Focal weakness, Numbness, Tingling Psychiatric: Denies: Anxiety, Depression, Homicidal Ideations, Suicidal Ideations Hematologic/ Lymphatic: Denies: Easy Bruising, Easy Bleeding VTE Information - Inpt Only VTE Present on Admission: No - Physical Exam Vitals/I&O's: Vital Signs Temp Pulse Resp BP Pulse Ox 36.6 C 105 H 16 145/101 H 97 07/18/20 14:29 07/18/20 14:29 07/18/20 14:29 07/18/20 14:07/18/20 14:29 Oxygen Delivery Method Room Air Weight: 67.3 kg Body Mass Index (BMI) 25.4 General: Alert, Cooperative HEENT: Atraumatic, Normocephalic Lungs: Clear to auscultation, Normal air movement Cardiovascular: Regular rate, No murmurs Abdomen: Bowel Sounds Present, Soft, Non Tender Extremities: No edema, No Calf Tenderness Skin: No rashes, No breakdown Laboratory Results 07/18/20 13:10: WBC 13.8 H, RBC 5.06, Hgb 13.8, Hct 42.5, MCV 84.0, MCH 27.3, MCHC 32.5, RDW Std Deviation 41.9, RDW Coeff of Jerome 13.7, Plt Count 526 H, MPV 9.9, Immature Gran % (Auto) 0.400, Neut % (Auto) 76.1 H, Lymph % (Auto) 19.5, Chickas[place] % (Auto) 3.6, Eos % (Auto) 0.1, Baso % (Auto) 0.3, Absolute Neuts (auto) 10.5 H, Absolute Lymphs (auto) 2.68, Nucleated RBC % 0 07/18/20 13:10: Sodium 139, Potassium 3.9, Chloride 104, Carbon Dioxide 28.0, Anion Gap 7, BUN 10, Creatinine 0.79, Estim Creat Clear Calc 91.55, Est GFR (MDRD) Af Amer 112, Est GFR (MDRD) Non-Af 93, BUN/Creatinine Ratio 12.7, Glucose 125 H, Calcium 9.5, Total Bilirubin 0.30, AST 17, ALT 42, Alkaline Phosphatase 100, Total Protein 8.2, Albumin 4.1, Globulin 4.1, Albumin/Globulin Ratio 1.0 07/18/20 13:10: Ethyl Alcohol < 3.0 07/18/20 13:10: Urine Opiates Screen POSITIVE H, Urine Methadone Screen NEGATIVE, Ur Barbiturates Screen NEGATIVE, Ur Phencyclidine Scrn NEGATIVE, Ur Amphetamines Screen NEGATIVE, U Methamphetamin-MDMA NEGATIVE, U Benzodiazepines Scrn NEGATIVE, Urine Cocaine Screen NEGATIVE, U Cannabinoids Screen NEGATIVE, Ur Drug Screen Comment 07/18/20 13:10: Serum , Qual NEGATIVE Current Medications Acetaminophen (Acetaminophen 325 Mg Tablet) 650 mg PO TID [facility] Amlodipine Besylate (Amlodipine 5 Mg Tablet) 5 mg PO DAILY [facility] Buprenorphine HCl (Buprenorphine Hcl 2 Mg Tab.Subl) 4 mg SL Q8H ALTHEA; Taper Stop: 07/21/20 15:29 Last Admin: 07/18/20 15:05 Dose: 4 mg Documented by: Clonidine (Clonidine Hcl 0.1 Mg Tablet) 0.1 mg PO Q8H PRN PRN PRN Reason: RESTLESSNESS Dicyclomine HCl (Dicyclomine 10 Mg Capsule) 20 mg PO Q6H PRN PRN PRN Reason: cramping Dicyclomine HCl (Dicyclomine 10 Mg Capsule) 20 mg PO Q6H PRN PRN PRN Reason: Abdominal Discomfort Gabapentin (Gabapentin 300 Mg Capsule) 300 mg PO Q8H PRN PRN PRN Reason: moderate to severe anxiety Hydroxyzine Pamoate (Hydroxyzine Adriana 25 Mg Capsule) 50 mg PO Q6H PRN PRN PRN Reason: mild anxiety Last Admin: 07/18/20 15:05 Dose: 50 mg Documented by: Ibuprofen (Ibuprofen 600 Mg Tablet) 600 mg PO Q8H PRN PRN PRN Reason: PAIN Loperamide HCl (Loperamide 2 Mg Capsule) 2 mg PO Q4H PRN PRN PRN Reason: LOOSE STOOLS Methocarbamol (Methocarbamol 750 Mg Tablet) 1,500 mg PO Q6H PRN PRN PRN Reason: MUSCLE SPASM Last Admin: 07/18/20 15:05 Dose: 1,500 mg Documented by: Metoprolol Succinate (Metoprolol(Xl)Succ 50 Mg Tablet) 50 mg PO DAILY [facility] Ondansetron HCl (Ondansetron 8 Mg Tablet) 8 mg PO Q8H PRN PRN PRN Reason: NAUSEA Last Admin: 07/18/20 15:06 Dose: 8 mg Documented by: Rizatriptan Benzoate (Rizatriptan Benzoate 5 Mg Tablet) 5 mg PO PRN PRN PRN Reason: MIGRAINE SYMPTOMS Sodium Chloride (0.9% Saline Lock 10 Ml Syringe) 10 - 40 ml IV UD PRN PRN Reason: SALINE FLUSH Trazodone HCl (Trazodone 100 Mg Tablet) 100 mg PO QHS PRN PRN PRN Reason: INSOMNIA Assessment/Plan Patient seen and examined independently. Data reviewed. I agree with the above note by the physician pier master assistant. 1. Acute opiate drawl: Patient on the buprenorphine taper plus additional agents to help with somatic issues related with her withdrawal. Patient interested in speaking with addiction medicine for further outpatient recovery programs. 2. Recent C. difficile: Patient had been antibiotics for 2 days and then 2 days later developed diarrhea and was treated for C. difficile for several days and was on vancomycin. Patient having intermittent diarrhea but does have known history of IBS and patient herself states that that is consistent with her IBS. No need to check the patient for C. difficile at this time. Inpatient E&M: 93348 Init Hosp L2
[2020-07-18] MEDS: Buprenorphine HCl 2 MG TAB.SUBL SL ×2 (15:05→22:38)
[2020-07-18] MEDS: hydrOXYzine PAM 25 MG Capsule 50 MG PO (15:05)
[2020-07-18] MEDS: Methocarbamol 750 MG Tablet 1500 MG PO (15:05)
[2020-07-18] MEDS: Ondansetron 8 MG Tablet PO (15:06)
--- NOTE | 2020-07-18 15:38 | EKG12_ITS ---
Test Reason : ABN EKG Blood Pressure : / mmHG Vent. Rate : 059 BPM Atrial Rate : 059 BPM P-R Int : 120 ms QRS Dur : 094 ms QT Int : 416 ms P-R-T Axes : 056 018 004 degrees QTc Int : 411 ms Sinus bradycardia Otherwise normal ECG When compared with ECG of 18-JUL-2020 15:53, MANUAL COMPARISON REQUIRED, DATA IS UNCONFIRMED Confirmed by SULLY TAVARES, JANETH ([id number]), editorial writer BERYL GALVAN ([id number]) on 07/20/2020 9:15:06 AM Referred By: LESIA Confirmed By:JANETH VIRK MD
[2020-07-18] MEDS: cloNIDine HCl 0.1 MG Tablet PO (15:44)
--- NOTE | 2020-07-18 15:57 | NURSING ---
12 lead ekg completed
[2020-07-18] MEDS: Acetaminophen 325 MG Tablet 650 MG PO ×2 (16:18→22:39)
--- NOTE | 2020-07-18 16:53 | ECHOD_ITS ---
Reason For Study: Abn EKG Procedure This was a 2D Doppler, Color Flow transthoracic echocardiogram. Exam performed portable in patient room. Left Ventricle Normal LV size. Left ventricular systolic function is normal. The estimated ejection fraction is 55 %. Stage 3 diastolic dysfunction. No regional wall motion abnormalities noted. Right Ventricle Normal RV size. Normal systolic function. Atria Normal left atrium. Normal right atrium. Mitral Valve Normal mitral valve. Tricuspid Valve Normal tricuspid valve. Mild (1+) tricuspid valve insufficiency. Pulmonary artery systolic pressure is 24 mmHg. Aortic Valve Normal aortic valve. Trisinus/trileaflet aortic valve. Pulmonic Valve Normal pulmonic valve. Great Vessels Normal aortic root. The pulmonary artery is normal size. Normal inferior vena cava. Pericardium/Pleural No pericardial effusion. MMode/2D Measurements & Calculations LVIDd: 4.4 cm IVSd: 0.84 cm Ao root diam: 2.8 cm LVIDs: 2.9 cm LVPWd: 1.1 cm RVDd: 3.0 cm FS: 35.5 % LAV(MOD-bp): 28.2 ml LVAd ap4: 26.5 cm2 SV(MOD-sp4): 40.0 ml LAV(MOD-bp) Indexed: 16.4 ml/m2 EDV(MOD-sp4): 71.8 ml LAV(MOD-sp2): 27.4 ml EDV(sp4-el): 73.6 ml LAV(MOD-sp4): 27.8 ml LVAs ap4: 16.1 cm2 ESV(MOD-sp4): 31.8 ml ESV(sp4-el): 33.0 ml EF(MOD-sp4): 55.7 % EF(sp4-el): 55.1 % SV(sp4-el): 40.5 ml LA A4 area: 12.7 cm2 LA dimension(2D): 2.9 cm RA A4 area: 14.6 cm2 Doppler Measurements & Calculations MV E max barney: 113.3 cm/sec Lat Peak E' Barney: 15.8 cm/sec Med Peak E' Barney: 11.8 cm/sec MV A max barney: 42.0 cm/sec E/E' lat: 7.2 E/E' med: 9.6 MV E/A: 2.7 Ao V2 max: 156.1 cm/sec LV V1 max: 124.6 cm/sec PA V2 max: 112.5 cm/sec Ao max P.8 mmHg LV V1 max P.2 mmHg TR max barney: 225.8 cm/sec TR max P.5 mmHg Interpretation Summary Normal LV size. Left ventricular systolic function is normal. The estimated ejection fraction is 55 %. Stage 3 diastolic dysfunction. Pulmonary artery systolic pressure is 24 mmHg. Structurally normal valves. Ordering Physician: Ladarius Puckett Performed By: Nori Carey RDCS
--- NOTE | 2020-07-18 18:21 | NURSING ---
spoke w/ lab about pending triponin-they said it would be another 20 minutes until it is final
[2020-07-18] MEDS: Gabapentin 300 MG Capsule PO (19:42)
[2020-07-19] VITALS (8 sets, daily range): BP systolic 95–114; BP diastolic 52–69; PULSE 60–78; RESP 16–18; TEMP 36.7–36.9; O2SAT 96–99
[2020-07-19] MEDS: Methocarbamol 750 MG Tablet 1500 MG PO ×3 (04:52→19:06)
[2020-07-19] MEDS: hydrOXYzine PAM 25 MG Capsule 50 MG PO ×2 (04:52→12:33)
--- NOTE | 2020-07-19 05:55 | EKG12_ITS ---
Test Reason : HYPERTENSION Blood Pressure : / mmHG Vent. Rate : 065 BPM Atrial Rate : 065 BPM P-R Int : 120 ms QRS Dur : 088 ms QT Int : 400 ms P-R-T Axes : 057 032 -08 degrees QTc Int : 416 ms Normal sinus rhythm with sinus arrhythmia T wave abnormality, consider inferior ischemia Abnormal ECG No previous ECGs available Confirmed by SULLY TAVARES, JANETH ([id number]), medical editor BERYL GALVAN ([id number]) on 07/20/2020 9:15:41 AM Referred By: LESIA Confirmed By:JANETH VIRK MD
[2020-07-19] MEDS: Acetaminophen 325 MG Tablet 650 MG PO ×3 (06:45→23:44)
[2020-07-19] MEDS: Buprenorphine HCl 2 MG TAB.SUBL SL ×3 (06:46→23:44)
[2020-07-19] MEDS: Gabapentin 300 MG Capsule PO ×2 (10:14→19:06)
[2020-07-19] MEDS: Ibuprofen 600 MG Tablet PO ×2 (10:14→19:06)
--- NOTE | 2020-07-19 10:14 | ADDICTION ---
This freelance copywriter met with PT in her room to complete ASAM, MSE, DUDIT assessments and to plan for d/c. PT A+Ox4. All assessments completed and faxed to [facility] and placed in PT's chart. PT plans to f/u with [facility] upon d/c from [facility]. PT did not request transportation coordination.
--- NOTE | 2020-07-19 12:19 | PCM.PN.HOSP ---
Patient Problems: Active and Suspected Problems Opiate withdrawal (Acute) Subjective: Patient is a pleasant 30-year-old female who is comfortably resting in bed, alert and oriented x3. Patient does endorse some nausea and abdominal pain throughout her body, however feels that this is manageable. Denies chest pain, palpitations, shortness of breath, fever, vomiting or diarrhea. Vitals/I&O's: Vital Signs Temp Pulse Resp BP Pulse Ox 98.0 F 68 16 101/53 L 97 07/19/20 08:26 07/19/20 08:26 07/19/20 08:26 07/19/20 08:26 07/19/20 08:26 Oxygen Delivery Method Room Air Weight: 148 lb 5.938 oz Body Mass Index (BMI) 25.4 Intake and Output for Last 24 Hours 07/17/20 07/18/20 07/19/20 23:59 23:59 23:59 Intake Total 200 / 600 1200 / 1200 Balance 200 / 600 1200 / 1200 General: Alert, Oriented x3, Cooperative HEENT: Atraumatic, PERRLA, EOMI, Normocephalic Neck: Supple, No JVD, Negative Carotid Bruits Lungs: Clear to auscultation, Normal air movement Cardiovascular: Regular rate, No murmurs Abdomen: Bowel Sounds Present, Soft, Non Tender Extremities: No edema, Capillary Refill Less than 3 Seconds Skin: No rashes, No breakdown Musculoskeletal: No Tenderness to Palpation of Joints or Extremities Neurological: Cranial nerves II-XII grossly intact Psych/Mental Status: Normal Affect, Appropriate Laboratory Results 07/18/20 13:10: WBC 13.8 H, RBC 5.06, Hgb 13.8, Hct 42.5, MCV 84.0, MCH 27.3, MCHC 32.5, RDW Std Deviation 41.9, RDW Coeff of Jerome 13.7, Plt Count 526 H, MPV 9.9, Immature Gran % (Auto) 0.400, Neut % (Auto) 76.1 H, Lymph % (Auto) 19.5, Day % (Auto) 3.6, Eos % (Auto) 0.1, Baso % (Auto) 0.3, Absolute Neuts (auto) 10.5 H, Absolute Lymphs (auto) 2.68, Nucleated RBC % 0 07/18/20 13:10: Sodium 139, Potassium 3.9, Chloride 104, Carbon Dioxide 28.0, Anion Gap 7, BUN 10, Creatinine 0.79, Estim Creat Clear Calc 91.55, Est GFR (MDRD) Af Amer 112, Est GFR (MDRD) Non-Af 93, BUN/Creatinine Ratio 12.7, Glucose 125 H, Calcium 9.5, Total Bilirubin 0.30, AST 17, ALT 42, Alkaline Phosphatase 100, Total Protein 8.2, Albumin 4.1, Globulin 4.1, Albumin/Globulin Ratio 1.0 07/18/20 13:10: Ethyl Alcohol < 3.0 07/18/20 13:10: Urine Opiates Screen POSITIVE H, Urine Methadone Screen NEGATIVE, Ur Barbiturates Screen NEGATIVE, Ur Phencyclidine Scrn NEGATIVE, Ur Amphetamines Screen NEGATIVE, U Methamphetamin-MDMA NEGATIVE, U Benzodiazepines Scrn NEGATIVE, Urine Cocaine Screen NEGATIVE, U Cannabinoids Screen NEGATIVE, Ur Drug Screen Comment 07/18/20 13:10: Serum , Qual NEGATIVE 07/18/20 17:24: Troponin I < 0.015 07/18/20 19:55: Troponin I < 0.015 07/18/20 22:41: Troponin I < 0.015 Current Medications Acetaminophen (Acetaminophen 325 Mg Tablet) 650 mg PO TID [facility] Last Admin: 07/19/20 06:45 Dose: 650 mg Documented by: Amlodipine Besylate (Amlodipine 5 Mg Tablet) 5 mg PO DAILY [facility] Last Admin: 07/19/20 11:32 Dose: Not Given Documented by: Buprenorphine HCl (Buprenorphine Hcl 2 Mg Tab.Subl) 4 mg SL Q8H ALTHEA; Taper Stop: 07/21/20 15:29 Last Admin: 07/19/20 06:46 Dose: 4 mg Documented by: Clonidine (Clonidine Hcl 0.1 Mg Tablet) 0.1 mg PO Q8H PRN PRN PRN Reason: RESTLESSNESS Last Admin: 07/18/20 15:44 Dose: 0.1 mg Documented by: Dicyclomine HCl (Dicyclomine 10 Mg Capsule) 20 mg PO Q6H PRN PRN PRN Reason: cramping Dicyclomine HCl (Dicyclomine 10 Mg Capsule) 20 mg PO Q6H PRN PRN PRN Reason: Abdominal Discomfort Gabapentin (Gabapentin 300 Mg Capsule) 300 mg PO Q8H PRN PRN PRN Reason: moderate to severe anxiety Last Admin: 07/19/20 10:14 Dose: 300 mg Documented by: Hydroxyzine Pamoate (Hydroxyzine Adriana 25 Mg Capsule) 50 mg PO Q6H PRN PRN PRN Reason: mild anxiety Last Admin: 07/19/20 04:52 Dose: 50 mg Documented by: Ibuprofen (Ibuprofen 600 Mg Tablet) 600 mg PO Q8H PRN PRN PRN Reason: PAIN Last Admin: 07/19/20 10:14 Dose: 600 mg Documented by: Loperamide HCl (Loperamide 2 Mg Capsule) 2 mg PO Q4H PRN PRN PRN Reason: LOOSE STOOLS Methocarbamol (Methocarbamol 750 Mg Tablet) 1,500 mg PO Q6H PRN PRN PRN Reason: MUSCLE SPASM Last Admin: 07/19/20 04:52 Dose: 1,500 mg Documented by: Metoprolol Succinate (Metoprolol(Xl)Succ 50 Mg Tablet) 50 mg PO DAILY AL[facility]A Ondansetron HCl (Ondansetron 8 Mg Tablet) 8 mg PO Q8H PRN PRN PRN Reason: NAUSEA Last Admin: 07/18/20 15:06 Dose: 8 mg Documented by: Rizatriptan Benzoate (Rizatriptan Benzoate 5 Mg Tablet) 5 mg PO PRN PRN PRN Reason: MIGRAINE SYMPTOMS Sodium Chloride (0.9% Saline Lock 10 Ml Syringe) 10 - 40 ml IV UD PRN PRN Reason: SALINE FLUSH Trazodone HCl (Trazodone 100 Mg Tablet) 100 mg PO QHS PRN PRN PRN Reason: INSOMNIA STROKE Vital Signs/Narrative: Vital Signs Temp Pulse Resp BP Pulse Ox 07/19/20 08:26 98.0 F 68 16 101/53 L 97 Medical Necessity - Tobacco Use Smoking Status: Never smoker Tobacco Use: Non-smoker Assessment/Plan All Active Problems Opiate withdrawal (Acute) Patient is a 30-year-old female who reports to the ED with a chief complaint of opioid withdrawal. Patient's current status is stable, does endorse some nausea and slight pain throughout her body, but feels this pain is manageable. Addiction medicine met with patient today and per their note she [facility] from [facility] instead of [facility]. When i met with patient patient still seem undecided about final decision, I advised her that it would be in her best interest to have a plan before discharge. Patient will remain admitted overnight 1) Opioid withdrawal/Detox Assessment - 10+ year history of prescription opioid abuse - Patient endorses nausea, chills, weakness, fatigue - Urine tox screen positive for opiates only - CBC and CMP unremarkable Plan - Admitted for opiate withdrawal and medical stabilization - Subutex taper initiated - CINA protocol in place 2) Hypertension Assessment - BP 101/53 on 07/19/2020 - Blood pressure likely elevated secondary to withdrawal - EKG obtained due to patient's documented hypertension per protocol, normal sinus rhythm with left ventricular hypertrophy served - Patient's LVH most likely secondary to hypertension - No elevation of troponins observed Plan - Continue home medication regiment of metoprolol succinate and amlodipine 3) Anxiety Assessment - Stable Plan - Monitor for symptoms 4) IBS Assessment - Stable Plan - Monitor for symptoms 5) S/P C. difficile infection Assessment - CBC unremarkable - No evidence of acute infection Plan - Continue to monitor for change in symptoms DVT prophylaxis - SCD's Patient seen by Jairo Coyle PA-C, under the supervision of Dr. Nguyễn.
[2020-07-19] MEDS: cloNIDine HCl 0.1 MG Tablet PO (12:32)
--- NOTE | 2020-07-19 14:05 | CASEMGMT ---
Social Work Note FAY reviewed chart, pt with history of Opioid use. Pt recently giving to child (8 Months ago) and is currently using again. SW received handoff from Ayah Herbert). Pt stated to Ayah that pt is planning on leaving her who is an alcoholic. Pt is planning on following up with counselor at [facility] and Peer Support. Pt had told Ayah that she had surgery at hospital and was prescribed Oxycodone and that is how pt started using again. Pt is not buying pills from streets. SW in to follow up with pt. SW introduced self and role at [facility]. Pt is alert and orientated. Pt confirms that her plans is to follow up with [facility] and counseling and Peer Support as pt was already active with [facility]. Pt confirms that she gave 8 months ago to a girl named Claudia. Pt states she was clean during . Pt states she went to [facility] for abdominal pain and was treated for a UTI with Antibiotics and then got C-Diff and was prescribed Oxycodone from [place]. Pt states she wants to get help (detox) so she doesn't go back down the road she was once on. Pt states she's never been involved in the law and wants to get clean and stay clean for herself and her children. Pt states she has a step son, who is 6 years old, and his name is eHrnandez Pinto. SW asked pt about her . Pt confirms that he is an alcoholic and she is planning on leaving him. Pt states he has never been abusive to her children. Pt states she has been talking to a contour path tape mill operator about getting a dissolution. Pt states that both her children (Claudia and Hernandez) are with her parents currently. Pt states that her parents are good sober support and children are in a safe environment. SW asked pt about any CPS involvement. Pt states she thinks her son Hernandez has had CPS involved in the past as his biological mother was involved in meth and has limited visitation. Pt states her is a trigger due to his alcohol use and again states she is planning on leaving him. Pt asked if her stay at [facility] could be used against her during her dissolution in the event that her Pavan brings up her drug use. SW informed pt that [facility] Cannot give any information to anyone she doesn't want information provided to. Pt states her , Pavan, is aware pt is at the hospital but is not aware of the reason why. Pt states she doesn't want information to be given to her Pavan if he calls in. SW informed pt that unless [facility] is subpoenaed, pt's stay at [facility] will be kept confidential and information will only be given to people that pt approves and gives [facility] permission to update. Pt states understanding. SW asked pt about current drug use. Pt confirms she was snorting her oxycodone. Pt confirms that she snorts the Oxycodone while her children are in the home. Pt states though that her children are always safe and she has never OD. Pt states I don't snort the Oxy to get high, I use it to feel better. Pt states that she was doing really well and was 3 year sober up until she relapsed. Pt states that she is motivated to get treatment and to remain sober. Pt identifies herself and her children as her motivation to get sober again and remain sober. Mental Health Hx: Pt states she has history of anxiety and depression, denied any current medication use. Pt denied any history of suicidal thoughts/plans/ideations. Pt denied any current suicidal thoughts/plans/ideations. Pt denied any additional needs or concerns at this time. This worker will meet with pt tomorrow to continue conversation. Any Smith VIDEO GAME DESIGNER, BUSINESS RELATIONSHIP MANAGER
--- NOTE | 2020-07-19 14:21 | CHAPLAIN ---
Type of Pastoral Visit _x__ Initial Visit ___ Follow-up Visit ___ On-call Visit ___ General Patient Visit ___ Spiritual Assessment ___ Family Conference ___ Bereavement ___ Rapid Response ___ Code Blue ___ Other (describe below) Pastoral Care Referral From _x__ Patient ___ Family ___ Nurse ___ Physician ___ International Nurse ___ Adventure Challenge Instructor ___ Other (describe below) Sacrament/Intervention _x__ Active listening ___ Anointing ___ Yarsani ___ Bereavement ___ Communion _x__ Caro exploration ___ _x__ Life review _x__ Prayer ___ Reconciliation ___ Sacrament of Sick _x__ Supportive presence ___ Wedding ___ Other (describe below) Pastoral Comments patient is talkative and gives detailed account of her recurrent use of pain medications; pt has an 8 mo old baby and a step son; pt has supportive parents but spouse is not; pt had a connection with a anabaptism/caro group years ago but is not attending now; pt has motivation to change and a plan started to put support in place by her report; prayer accepted;
[2020-07-19] MEDS: Phenazopyridine 95 MG Tablet PO (15:10)
--- NOTE | 2020-07-19 17:55 | NURSING ---
Call to lab regarding urine. This RN collected and sent culture tube, yellow top tube and tiger tube and there is only a culture pending in the system at this time. Jaye in Lab states she will look into this.
[2020-07-19 17:56] LABS: Red Blood Cells-Urine 0 SEEN /hpf (0-5)
[2020-07-19 18:01] LABS: Color, Urine Yellow (Yellow); Glucose, Dipstick Normal (Normal); Ketone-Dipstick 5 mg/dl (Negative); Leukocyte Esterase-Dipstick 500 /ul (Negative); Nitrite-Dipstick Negative (Negative); Occult Blood-Urine Negative /ul (Negative); Protein-Dipstick 30 mg/dl (Negative); Specific Gravity, Urine 1.025 (1.002-1.030); Urine Clarity Sl. Cloudy (Clear); Urine Urobilinogen Normal (Normal)
[2020-07-19 18:02] LABS: Urine Bilirubin Dipstick 1 mg/dL (Negative)
[2020-07-19 18:14] LABS: White Blood Cells 25-50 SEEN /hpf (0-5)
[2020-07-19 18:15] LABS: Bacteria 4+ /hpf (None Seen); Mucous, Urine 1+ /hpf (<or=2+); Squamous Epithelial Cells - UA 25-50 SEEN /hpf (5-10)
[2020-07-19] MEDS: traZODone 100 MG Tablet PO (23:44)
[2020-07-19] MEDS: Nitrofurantoin Macrocrystals 100 MG Capsule PO (23:44)
[2020-07-20] MEDS: hydrOXYzine PAM 25 MG Capsule 50 MG PO ×2 (00:01→12:00)
[2020-07-20] MEDS: Rizatriptan Benzoate 5 MG Tablet PO ×2 (00:22→21:15)
[2020-07-20 00:25] VITALS: BP 109/50; PULSE 67; RESP 18; TEMP 36.6; O2SAT 96
[2020-07-20 06:30] VITALS: BP 111/61; PULSE 74; RESP 18; TEMP 36.4; O2SAT 97
[2020-07-20] MEDS: Buprenorphine HCl 2 MG TAB.SUBL SL ×2 (07:02→15:40)
[2020-07-20] MEDS: Methocarbamol 750 MG Tablet 1500 MG PO ×2 (07:02→18:57)
[2020-07-20] MEDS: Acetaminophen 325 MG Tablet 650 MG PO ×3 (07:10→21:11)
[2020-07-20 08:41] VITALS: BP 122/77; PULSE 85; RESP 18; TEMP 36.9; O2SAT 96
--- NOTE | 2020-07-20 09:19 | ADDICTION ---
This manual writer met with patient to finalize d/c plan. PT A+Ox4. PT to f/u with Is[facility] post d/c from [facility]. PT did not request transportation assistance. PT given recovery information and this manual writer's contact information in case she needs a contact following d/c. PT amiable to d/c plan.
[2020-07-20 09:31] VITALS: BP 122/77; PULSE 85
[2020-07-20] MEDS: Nitrofurantoin Macrocrystals 100 MG Capsule PO ×2 (09:35→21:11)
[2020-07-20] MEDS: cloNIDine HCl 0.1 MG Tablet PO ×2 (09:35→21:15)
--- NOTE | 2020-07-20 11:08 | PN_ITS ---
Patient Problems: Active and Suspected Problems Opiate withdrawal (Acute) Subjective: Patient is a pleasant 30-year-old female who is comfortably resting in bed, alert and oriented x3. Yesterday the patient began to develop some pain on urination and urgency. Patient initiated on Macrobid and today reprots resolution of her urinary symptoms. Patient reports or minor symptoms related to withdrawal to include being restless and minor nasuea. Patient denies fever, child, vomiting/diarrhea, chest pain and SOB. Objective: Laboratory Results 07/19/20 14:20 Urine Color Yellow Urine Clarity Sl. Cloudy Urine pH 5.0 Ur Specific [place] 1.025 Urine Protein 30 H Urine Glucose (UA) Normal Urine Ketones 5 H Urine Occult Blood Negative Urine Nitrite Negative Urine Bilirubin 1 H Urine Urobilinogen Normal Ur Leukocyte Esterase 500 H Urine RBC 0 SEEN Urine WBC 25-50 SEEN Ur Squamous Epith Cells 25-50 SEEN Urine Bacteria 4+ Urine Mucus 1+ Vitals/I&O's: Vital Signs Temp Pulse Resp BP Pulse Ox 98.4 F 85 18 122/77 H 96 07/20/20 08:41 07/20/20 09:31 07/20/20 08:41 07/20/20 09:31 07/20/20 08:41 Oxygen Delivery Method Room Air Weight: 148 lb 5.938 oz Body Mass Index (BMI) 25.4 Intake and Output for Last 24 Hours 07/18/20 07/19/20 07/20/20 23:59 23:59 23:59 Intake Total 200 / 600 2200 / 2200 Balance 200 / 600 2200 / 2200 General: Alert, Oriented x3, Cooperative HEENT: Atraumatic, PERRLA, EOMI, Normocephalic Neck: Supple, No JVD, Negative Carotid Bruits Lungs: Clear to auscultation, Normal air movement Cardiovascular: Regular rate, No murmurs Abdomen: Bowel Sounds Present, Soft, Non Tender Extremities: No edema, Capillary Refill Less than 3 Seconds Skin: No rashes, No breakdown Musculoskeletal: No Tenderness to Palpation of Joints or Extremities Neurological: Cranial nerves II-XII grossly intact Psych/Mental Status: Normal Affect, Appropriate Laboratory Results 07/19/20 14:20: Urine Color Yellow, Urine Clarity Sl. Cloudy, Urine pH 5.0, Ur Specific [place] 1.025, Urine Protein 30 H, Urine Glucose (UA) Normal, Urine Ketones 5 H, Urine Occult Blood Negative, Urine Nitrite Negative, Urine Bilirubin 1 H, Urine Urobilinogen Normal, Ur Leukocyte Esterase 500 H, Urine RBC 0 SEEN, Urine WBC 25-50 SEEN, Ur Squamous Epith Cells 25-50 SEEN, Urine Bacteria 4+, Urine Mucus 1+ Current Medications Acetaminophen (Acetaminophen 325 Mg Tablet) [address] [facility] Last Admin: 07/20/20 07:10 Dose: 650 mg Documented by: Amlodipine Besylate (Amlodipine 5 Mg Tablet) [address] [facility] Last Admin: 07/20/20 09:31 Dose: Not Given Documented by: Buprenorphine HCl (Buprenorphine Hcl 2 Mg Tab.Subl) [address] [facility]; Taper Stop: 07/21/20 15:29 Last Admin: 07/20/20 07:02 Dose: 2 mg Documented by: Clonidine (Clonidine Hcl 0.1 Mg Tablet) 0.1 mg PO Q8H PRN PRN PRN Reason: RESTLESSNESS Last Admin: 07/20/20 09:35 Dose: 0.1 mg Documented by: Dicyclomine HCl (Dicyclomine 10 Mg Capsule) 20 mg PO Q6H PRN PRN PRN Reason: Abdominal Discomfort Docusate Calcium (Docusate Calcium 240 Mg Capsule) [address] [facility] Last Admin: 07/20/20 09:35 Dose: 240 mg Documented by: Gabapentin (Gabapentin 300 Mg Capsule) 300 mg PO Q8H PRN PRN PRN Reason: moderate to severe anxiety Last Admin: 07/19/20 19:06 Dose: 300 mg Documented by: Hydroxyzine Pamoate (Hydroxyzine Adriana 25 Mg Capsule) 50 mg PO Q6H PRN PRN PRN Reason: mild anxiety Last Admin: 07/20/20 00:01 Dose: 50 mg Documented by: Ibuprofen (Ibuprofen 600 Mg Tablet) 600 mg PO Q8H PRN PRN PRN Reason: PAIN Last Admin: 07/19/20 19:06 Dose: 600 mg Documented by: Loperamide HCl (Loperamide 2 Mg Capsule) 2 mg PO Q4H PRN PRN PRN Reason: LOOSE STOOLS Methocarbamol (Methocarbamol 750 Mg Tablet) 1,500 mg PO Q6H PRN PRN PRN Reason: MUSCLE SPASM Last Admin: 07/20/20 07:02 Dose: 1,500 mg Documented by: Metoprolol Succinate (Metoprolol(Xl)Succ 50 Mg Tablet) [address] [facility] Last Admin: 07/20/20 09:31 Dose: Not Given Documented by: Nitrofurantoin Macrocrystals (Nitrofurantoin Macrocrystals 100 Mg Capsule) [address] [facility] Last Admin: 07/20/20 09:35 Dose: 100 mg Documented by: Ondansetron HCl (Ondansetron 8 Mg Tablet) 8 mg PO Q8H PRN PRN PRN Reason: NAUSEA Last Admin: 07/18/20 15:06 Dose: 8 mg Documented by: Rizatriptan Benzoate (Rizatriptan Benzoate 5 Mg Tablet) 5 mg PO PRN PRN PRN Reason: MIGRAINE SYMPTOMS Last Admin: 07/20/20 00:22 Dose: 5 mg Documented by: Sodium Chloride (0.9% Saline Lock 10 Ml Syringe) 10 - 40 ml IV UD PRN PRN Reason: SALINE FLUSH Trazodone HCl (Trazodone 100 Mg Tablet) 100 mg PO QHS PRN PRN PRN Reason: INSOMNIA Last Admin: 07/19/20 23:44 Dose: 100 mg Documented by: STROKE Vital Signs/Narrative: Vital Signs Temp Pulse Resp BP Pulse Ox 07/20/20 09:31 85 122/77 H 07/20/20 08:41 98.4 F 85 18 122/77 H 96 Medical Necessity - Tobacco Use Smoking Status: Never smoker Tobacco Use: Non-smoker Assessment/Plan All Active Problems Opiate withdrawal (Acute) Acute cystitis (Acute) Patient is a 30-year-old female who reports to the ED with a chief complaint of opioid withdrawal. Patient's current status is stable. Yesterday patient did develop some urgency and pain with urination. UA revealed a mild UTI, placed on Macrobid. Patient reprots resolution of her urinary symptoms today. Patient reports only mild leg pain, nausea, and anxiety related to her opiate withdrawal. Patient has decided that she would like to enroll in the [facility] upon discharge from [facility] for outpatient management. Anticipate discharge tomorrow. 1) Opioid withdrawal/Detox Assessment - 10+ year history of prescription opioid abuse - Patient endorses nausea, chills, weakness, fatigue - Urine tox screen positive for opiates only - CBC and CMP unremarkable Plan - Admitted for opiate withdrawal and medical stabilization - Subutex taper initiated - CINA protocol in place 2) Acute cystitis Assessment - Patient endorsed urgency and dysuria on 07/19/2020 - UA significant for 4+ bacteria, Leukocyte Esterase of 500 and cloudy urine - WBC 13.8 on admission Plan - Initiate Macrobid 100mg PO BID 3) Hypertension Assessment - BP 101/53 on 07/19/2020 - Blood pressure likely elevated secondary to withdrawal - EKG obtained due to patient's documented hypertension per protocol, normal sinus rhythm with left ventricular hypertrophy served - Patient's LVH most likely secondary to hypertension - No elevation of troponins observed Plan - Continue home medication regiment of metoprolol succinate and amlodipine 4) Anxiety Assessment - Stable Plan - Monitor for symptoms 5) IBS Assessment - Stable Plan - Monitor for symptoms 6) S/P C. difficile infection Assessment - CBC unremarkable - No evidence of acute infection Plan - Continue to monitor for change in symptoms DVT prophylaxis - SCD's Patient seen by Jairo Coyle PA-C, under the supervision of Dr. Nguyễn.
[2020-07-20] MEDS: Ibuprofen 600 MG Tablet PO (12:00)
[2020-07-20] MEDS: Ondansetron 8 MG Tablet PO (12:00)
[2020-07-20] MEDS: Dicyclomine 10 MG Capsule 20 MG PO (12:00)
[2020-07-20 14:32] VITALS: BP 92/48; PULSE 63; RESP 18; TEMP 36.6; O2SAT 95
--- NOTE | 2020-07-20 14:34 | CASEMGMT ---
Addendum entered by Any Smith 07/20/20 15:40: SW placed a call back to [facility] and asked to be updated after pt's case get screened and determined if they will open a case or not so this worker can let pt know. SW informed [facility] that this worker didn't tell pt yet that a CPS referral was made and will tell pt one was made if they plan on opening pt's case so pt is aware. [facility] state pt's case will get screened tomorrow and then they can call this worker and let this worker know if a case will be opened or not. Original Note: Social Work Note SW back in to speak with pt to continue discussion of Oxycodone use. Pt states she was at [facility] twice in May and that is when she was prescribed the Oxycodone. Pt states she was prescribed around 5 days worth of Oxy each time. Pt states she would leave the hospital and then feel good and then not take the Oxy right away but then she would start to feel some pain and then begin snorting the Oxycodone. Pt denied getting the Opioids off of the street, states it was all prescribed. Pt again confirms that she [facility] be [facility] and peer support at discharge. Pt states she hasn't scheduled an appointment yet and plans to schedule one when she leaves [facility]. Pt states in April she was seeing her counselor about 2x a week and attending AA meetings. Pt states that counselor left though and she got a new one assigned to her last month and hasn't had to chance to meet in person yet. Pt states they do video calls. Pt denied additional needs or concerns at this time. SW did place a call to [facility] and made a CPS referral. Any Smith SALES OPERATIONS DIRECTOR, GUARD IMMIGRATION
[2020-07-20] MEDS: Gabapentin 300 MG Capsule PO (18:57)
[2020-07-20 21:00] VITALS: BP 117/55; PULSE 77; RESP 16; TEMP 37.3; O2SAT 94
[2020-07-21 03:00] VITALS: BP 101/64; PULSE 84; RESP 16; TEMP 37.2; O2SAT 98
[2020-07-21] MEDS: Buprenorphine HCl 2 MG TAB.SUBL SL (03:08)
[2020-07-21] MEDS: Methocarbamol 750 MG Tablet 1500 MG PO (04:38)
[2020-07-21] MEDS: hydrOXYzine PAM 25 MG Capsule 50 MG PO (04:39)
[2020-07-21] MEDS: Acetaminophen 325 MG Tablet 650 MG PO (06:14)
[2020-07-21 10:05] VITALS: BP 109/67; PULSE 78; RESP 18; TEMP 37; O2SAT 99
--- NOTE | 2020-07-21 10:05 | DCINST_ITS ---
- Discharge Diagnoses Current Active Problems: Current Active and Chronic Problems Opiate withdrawal (Acute) Narcotic dependence (Chronic) Tobacco dependence (Chronic) Fibromyalgia (Chronic) Migraine headache (Chronic) Neuropathy (Chronic) Left lower extremity with abnormal nerve conduction studies Anxiety (Chronic) You will use the following diet at home:: No restrictions Your food should be the consistency of: Regular Your liquids should be the consistency of: Regular/Thin Discharge Activity: Return to Normal Activity Weight Bearing Status: Full weight bearing Allergies/Adverse Reactions: Allergies tramadol Allergy (Verified 07/18/20 12:41) Anaphylaxis cephalexin [From Keflex] Adverse Reaction (Verified 07/19/20 19:03) Diarrhea duloxetine [From Cymbalta] Adverse Reaction (Verified 07/18/20 12:41) Diarrhea Medications to take at Discharge Levonorgestrel-Ethin Estradiol [Larissia-28 Tablet] 1 tablet PO QHS 10/18/17 Metoprolol Succinate 50 mg PO DAILY 10/18/17 Sumatriptan Succinate 25 mg PO PRN PRN 10/18/17 Acetaminophen [Tylenol Tablet] 650 mg PO TID tablet 10/21/17 Amlodipine [Norvasc] 5 mg PO DAILY 07/18/20 Dicyclomine HCl 20 mg PO Q6H PRN PRN 07/18/20 Nitrofurantoin Macrocrystals [Macrobid] 100 mg PO BID #14 capsule 07/21/20 The following prescriptions were given: Nitrofurantoin Macrocrystals [Macrobid] 100 mg PO BID #14 capsule Transmission Status: Pending to [facility]/pharmacy #[id number] Primary Care Physician: Care Physician,No Primary [Primary Care Provider] - Test Results: Test results from this visit will be discussed in further detail at your follow- up appointment, if applicable. Please Follow Up With: Detox services as scheduled
[2020-07-21 10:30] VITALS: BP 109/67; PULSE 78
[2020-07-21] MEDS: Nitrofurantoin Macrocrystals 100 MG Capsule PO (10:30)
[2020-07-21] MEDS: Metoprolol(XL)Succ 50 MG Tablet PO (10:30)
[2020-07-21] MEDS: amLODIPine 5 MG Tablet PO (10:30)
--- NOTE | 2020-07-21 11:20 | PCM.DC.SUM ---
Discharge Date and Diagnosis - Problem List Patient Problems: Active and Suspected Problems Opiate withdrawal (Acute) Date of Admission: 07/18/20 Date of Discharge: 07/21/20 - Primary Discharge Diagnosis Acute Problems: Active Problems Opiate withdrawal (Acute) - Secondary Discharge Diagnosis Chronic Problems: Chronic Problems Narcotic dependence (Chronic) Tobacco dependence (Chronic) Fibromyalgia (Chronic) Migraine headache (Chronic) Neuropathy (Chronic) Left lower extremity with abnormal nerve conduction studies Anxiety (Chronic) Hospital Course and Treatment Imaging Results: Microbiology 07/19/20 14:20 Urine, Clean Catch Urine Culture - Final Mixed Gram Positive Organisms Operations: None Procedures: EKG Summary of Care Provided: Patient is a 30-year-old female who reported to the ED with a chief complaint of opioid withdrawal on 07/18/2020. Patient was admitted for Medical stabilization secondary to opiate withdrawal. Patient's admission only demonstrated mild withdrawal symptoms to include restless legs, mild nausea, anxiety, and urinary urgency secondary to acute cystitis. Patient's current status is stable. Denies fever, chills, V/D, shortness of breath, chest pain or palpitations. Patient has decided that she would like to enroll in the [facility] upon discharge from [facility] for outpatient management. Given the patient's continued struggle with opioid addiction, case management did place a call to [facility] and family services to make a [facility] referral. Outcome of contact to CPS unclear at discharge. 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 twice daily continued for 7 days at discharge 3) Hypertension Assessment - Stable throughout admission Plan - Continue home amlodipine and metoprolol upon discharge 4) Anxiety Assessment - Stable 5) IBS Assessment - Stable 6) S/P C. difficile infection Assessment - CBC unremarkable - No evidence of acute infection - Stable DVT prophylaxis - SCD's Patient seen by Jairo Coyle PA-C, under the supervision of Dr. Nguyễn. Patient Problems: Active and Suspected Problems Opiate withdrawal (Acute) Subjective: Patient is a pleasant 30-year-old female is resting comfortably in bed, alert and oriented x3. Patient endorses only mild nausea, leg pain, fatigue. Patient denies fever, chills, V/D, chest pain, shortness of breath, palpitations. - Physical Exam Vitals/I&O's: Vital Signs Temp Pulse Resp BP Pulse Ox 98.6 F 78 18 109/67 99 07/21/20 10:05 07/21/20 10:30 07/21/20 10:05 07/21/20 10:30 07/21/20 10:05 Oxygen Delivery Method Room Air Weight: 148 lb 5.938 oz Body Mass Index (BMI) 25.4 Intake and Output for Last 24 Hours 07/19/20 07/20/20 07/21/20 23:59 23:59 23:59 Intake Total 2200 / 2200 850 / 850 Balance 2200 / 2200 850 / 850 General: Alert, Oriented x3, Cooperative HEENT: Atraumatic, PERRLA, EOMI, Normocephalic Neck: Supple, No JVD, Negative Carotid Bruits Lungs: Clear to auscultation, Normal air movement Cardiovascular: Regular rate, No murmurs Abdomen: Bowel Sounds Present, Soft, Non Tender Extremities: No edema, Capillary Refill Less than 3 Seconds Skin: No rashes, No breakdown Musculoskeletal: No Tenderness to Palpation of Joints or Extremities Neurological: Cranial nerves II-XII grossly intact Psych/Mental Status: Normal Affect, Appropriate Microbiology Past 72 Hours 07/19/20 14:20 Urine, Clean Catch Urine Culture - Final Mixed Gram Positive Organisms Discharge Activity: Return to Normal Activity Weight Bearing Status: Full weight bearing Home Medications: Medications to take at Discharge Levonorgestrel-Ethin Estradiol [Larissia-28 Tablet] 1 tablet PO QHS 10/18/17 Metoprolol Succinate 50 mg PO DAILY 10/18/17 Sumatriptan Succinate 25 mg PO PRN PRN 10/18/17 Acetaminophen [Tylenol Tablet] 650 mg PO TID tablet 10/21/17 Amlodipine [Norvasc] 5 mg PO DAILY 07/18/20 Dicyclomine HCl 20 mg PO Q6H PRN PRN 07/18/20 Nitrofurantoin Macrocrystals [Macrobid] 100 mg PO BID #14 capsule 07/21/20 Following Prescriptions Were Given to Patient: Nitrofurantoin Macrocrystals [Macrobid] 100 mg PO BID #14 capsule Transmission Status: Received by [facility]/pharmacy #[id number] Primary Care Physician: Care Physician,No Primary [Primary Care Provider] - Please Follow Up With: Detox services as scheduled Disposition: Home Minutes spent on discharge:: 35 Patient Condition:: Good Medical Necessity - Tobacco Use Smoking Status: Never smoker Tobacco Use: Non-smoker Meaningful Use Info Meaningful Use Diagnoses (Choose all that apply): None applicable
--- NOTE | 2020-07-21 11:51 | PHA.DC.MR ---
Pharmacy Service has performed discharge medication reconciliation for this patient. The patient's discharge medication list was reviewed for discrepancies and discrepancies were resolved. Home Medications Levonorgestrel-Ethin Estradiol [Larissia-28 Tablet] 1 tablet PO QHS 10/18/17 Metoprolol Succinate 50 mg PO DAILY 10/18/17 Sumatriptan Succinate 25 mg PO PRN PRN 10/18/17 Acetaminophen [Tylenol Tablet] 650 mg PO TID tablet 10/21/17 Amlodipine [Norvasc] 5 mg PO DAILY 07/18/20 Dicyclomine HCl 20 mg PO Q6H PRN PRN 07/18/20 Nitrofurantoin Macrocrystals [Macrobid] 100 mg PO BID #14 capsule 07/21/20
--- NOTE | 2020-07-21 12:01 | CASEMGMT ---
Addendum entered by Any Smith 07/21/20 12:24: SW did place a call to Pt's FAY Arroyo and left message that pt was discharged home today from [facility]. Original Note: Social Work Note SW received message from Soni at [facility] stating they are opening a CPS case on pt. Pt's case has been assigned to FAY Franklin ([phone]). Pt has been discharged from the hospital and has already left. Any Smith SCAFFOLDER, BLACK PULLER
--- NOTE | 2020-07-22 09:09 | CASEMGMT ---
Social Work Note SW received call from pt's FAY Arroyo at [facility] with additional questions. FAY answered questions. Dina confirms she got this worker's message yesterday about pt being discharged from [facility]. Any Smith COMPUTER GAME PROGRAMMER, SENIOR INSTRUCTOR
--- NOTE | 2020-07-22 11:18 | NURSING ---
pt called in requesting to talk with someone about cps and her children, transferred to Any ortega social welfare administrator
== END 2020-07-21 11:14 | disposition home or self-care (01) | DRG 773 ==
LOC: ED 13:27 → MS3 14:58
PROVIDERS: Physician Assistant; Emergency Provider Emergency Medicine; Visit Provider Internal Medicine
DX: F11.23 Opioid dependence with withdrawal (principal); I11.9 Hypertensive heart disease without heart failure; N30.00 Acute cystitis without hematuria; G62.9 Polyneuropathy, unspecified; G43.909 Migraine, unspecified, not intractable, without status migrainosus; K58.9 Irritable bowel syndrome, unspecified; M79.7 Fibromyalgia; F41.9 Anxiety disorder, unspecified; F17.200 Nicotine dependence, unspecified, uncomplicated; Z79.899 Other long term (current) drug therapy; Z86.19 Personal history of other infectious and parasitic diseases
CPT/HCPCS: 36415; 80053; 80307; 81001; 82077; 84484; 84703; 85025; 87086; 87088; 93005; 93306; 99284; A4216